=== PATIENT | female | born 1995 | race Two or more races ===

== ENCOUNTER 2025-01-31 06:00 | Emergency (ER) | payer MEDICAID, OTHER ==
[~2025-01-31] VITALS: Ht 152.4 cm; Wt 115.6 kg
--- NOTE | 2025-01-31 06:44 | ED.PDOC ---
General HPI Comments 29F presents to the ER w/ prior hx of an Ovarian Torsion which may be associated to the c/c of flank pain. Pt reports on being at her PCP 2 weeks ago and being diagnosed w/ a UTI, and was given antibiotics, for which has ran out and still has the frequent urination w/ a burning sensation. Pt states that she started to gradually have bilateral flank pain which are a 9/10 associated w/ a nosebleed, fever and chills, which all happened last night. Denies N/V/D, SOB, CP or no other associated symptom's, modifiers, recent injuries or sick contacts at this time. Chief Complaint: Flank Pain Time Seen by MD: 06:25 Reviewed notes: Nurses Notes, Medications, Allergies Allergies: Coded Allergies: Gabapentin (Verified Allergy, Severe, 01/31/25) Uncoded Allergies: CONTRAST (Allergy, Unknown, 01/31/25) SEAFORD LIQUID MULTIVITE (Allergy, Unknown, 01/31/25) Home Meds Active Scripts Nitrofurantoin Monohydrate Mac (Macrobid) 100 Mg Cap, 100 MG PO BID for 7 Days, #14 CAP Prov:KAL RODRIGUEZ MD 01/31/25 Information Source: Patient Mode of Arrival: Ambulatory Severity: Moderate Timing: Weeks Duration: Since onset Prehospital treatment: None Onset: Spontaneous Symptoms: Dysuria, Frequency History of: None Location: (R) Flank, (L)Flank associated signs and symptoms: Fever, Flank Pain, Dysuria, Frequency Past Medical History PAST MEDICAL HISTORY: Denies Surgical History: Denies all surgeries Surgical History (Other): Ovarian torsion BIOLOGIST History: No Pertinent BIOLOGIST History Family History Family History: Reviewed,noncontributory to illness, Unknown Social History Smoker: Non-Smoker Alcohol: Denies ETOH Use Drugs: Denies Drug Use Lives In: Home Constitutional: reports: chills, fever; denies: diaphoresis, fatigue, malaise, sweats, weakness, others EENTM: denies: blurred vision, double vision, ear bleeding, ear discharge, ear drainage, ear pain, ear ringing, eye pain, eye redness, hearing loss, mouth pain, mouth swelling, nasal discharge, nose bleeding, nose congestion, nose pain, photophobia, tearing, throat pain, throat swelling, voice changes, others Respiratory: denies: cough, hemoptysis, orthopnea, SOB at rest, shortness of breath, SOB with excertion, stridor, wheezing, others Cardiovascular: denies: chest pain, dizzy spells, diaphoresis, Dyspnea on exertion, edema, irregular heart beat, left arm pain, lightheadedness, palpitations, PND, syncope, others Gastrointestinal: denies: abdomen distended, abdominal pain, blood streaked bowels, constipated, diarrhea, dysphagia, difficulty swallowing, hematemesis, melena, nausea, poor appetite, poor fluid intake, rectal bleeding, rectal pain, vomiting, others Genitourinary: reports: burning, dysuria, flank pain, frequency; denies: abnormal vagina bleeding, dyspareunia, hematuria, incontinence, pain, , vagina discharge, urgency, others Neurological: denies: dizziness, fainting, headache, left sided numbness, left sided weakness, numbness, paresthesia, pre-existing deficit, right sided numbness, right sided weakness, seizure, speech problems, tingling, tremors, weakness, others Musculoskeletal: denies: back pain, gout, joint pain, joint swelling, muscle pain, muscle stiffness, neck pain, others Integumetry: denies: bruises, change in color, change in hair/nails, dryness, laceration, lesions, lumps, rash, wounds, others Allergic/Immunocompromised: denies: Difficulty Healing, Frequent Infections, Hives, Itching, others Hematologic/Lymphatic: denies: anemia, blood clots, easy bleeding, easy bruising, swollen glands, others Endocrine: denies: excessive hunger, excessive sweating, excessive thirst, excessive urination, flushing, intolerance to cold, intolerance to heat, une xplained weight gain, unexplained weight loss, others Psychiatric: denies: anxiety, bipolar disorder, depression, hopeless, panic disorder, schizophrenia, sleepless, suicidal, others All Other Systems: Reviewed and Negative Physical Exam General Appearance: Moderate Distress, Normal HEENT: Normal ENT Inspection, Pharynx Normal, TMs Normal Neck: Full Range of Motion, Non-Tender, Normal, Normal Inspection Respiratory: Chest Non-Tender, Lungs Clear, No Accessory Muscle Use, No Respiratory Distress, Normal Breath Sounds Cardiovascular: No Edema, No JVD, No Murmur, No Gallop, Normal Peripheral Pulses, Regular Rate/Rhythm Breast Exam: Deferred Gastrointestinal: No Organomegaly, Non Tender, No Pulsatile Mass, Normal Bowel Sounds, Soft Genitalia: Deferred Pelvic: Deferred Rectal: Deferred Extremities: No calf tenderness, Normal capillary refill, Normal inspection, Normal range of motion, Non-tender, No pedal edema Musculoskeletal : Apperance: Normal 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 Was a procedure done?: No Differential Diagnosis Kidney stone (Female): Musculoskeletal pain, Urinary obstruction, Urolithiasis X-Ray, Labs, Meds, VS Vital Signs Date Time Temp Pulse Resp B/P (MAP) Pulse Ox O2 Delivery O2 Flow Rate FiO2 01/31/25 07:18 74 18 99 Room Air* 0 21 01/31/25 07:17 98.1 74 18 116/55 (75) 99 98.1 01/31/25 06:10 97.9 87 14 149/62 (91) 99 97.9 Lab Test 01/31/25 07:02 01/31/25 06:12 Range/Units White Blood Count 6.9 4.4-10.8 10^3/uL Red Blood Count 4.63 4.0-5.20 10^6/uL Hemoglobin 11.6 L 12.2-16.2 g/dL Hematocrit 35.4 L 36.0-46.0 % Mean Corpuscular Volume 76.6 L 80.0-100.0 fL Mean Corpuscular Hemoglobin 25.1 L 28.0-32.0 pg Mean Corpuscular Hemoglobin Concent 32.8 32.0-36.0 g/dL Red Cell Distribution Width 17.5 H 11.8-14.3 % Platelet Count 381 140-450 10^3/uL Mean Platelet Volume 7.4 6.9-10.8 fL Neutrophils (%) (Auto) 50.3 37.0-80.0 % Lymphocytes (%) (Auto) 39.0 10.0-50.0 % Monocytes (%) (Auto) 7.1 0.0-12.0 % Eosinophils (%) (Auto) 2.9 0.0-7.0 % Basophils (%) (Auto) 0.7 0.0-2.0 % Neutrophils # (Auto) 3.5 1.6-8.6 10 ^3/uL Lymphocytes # (Auto) 2.7 0.4-5.4 10 ^3/uL Monocytes # (Auto) 0.5 0-1.3 10 ^3/uL Eosinophils # (Auto) 0.2 0-0.8 10 ^3/uL Basophils # (Auto) 0 0-0.2 10 ^3/uL Nucleated Red Blood Cells 0.1 % Sodium Level 137 136-145 mmol/L Potassium Level 4.2 3.5-5.1 mmol/L Chloride Level 105 98-107 mmol/L Carbon Dioxide Level 24 20-31 mmol/L Anion Gap 8 5-15 Blood Urea Nitrogen 9 9-23 mg/dL Creatinine 0.66 0.550-1.02 mg/dL Glomerular Filtration Rate Calc 121 >90 mL/min BUN/Creatinine Ratio 13.6 10.0-20.0 Serum Glucose 102 74-106 mg/dL Calcium Level 9.8 8.7-10.4 mg/dL Urine Color Colorless Yellow Urine Clarity Turbid H Clear Urine pH 6.0 5.0-9.0 Urine Specific [place] 1.024 1.001-1.035 Urine Protein Negative Negative Urine Ketones Negative Negative Urine Blood Negative Negative /uL Urine Nitrite Negative Negative Urine Bilirubin Negative Negative Urine Urobilinogen Normal Negative mg/dL Urine Leukocyte Esterase 3+ Negative /uL Urine RBC 1 0 - 4 /hpf Urine Microscopic WBC 44 H 0-5 /HPF Urine Squamous Epithelial Cells Few <5 /hpf Urine Bacteria Few H None Seen /hpf Urine Glucose Normal Normal mg/dL Current Medications Medications (Trade) Dose Ordered Sig/Rachael Route Start Time Stop Time Status Last Admin Ceftriaxone Sodium (Rocephin) 1,000 mg ONCE ONCE IM 01/31/25 07:30 01/31/25 07:31 DC 01/31/25 07:48 Patient alert. Complaining of suprapubic discomfort. Abdomen is soft nontender. Vitals stable. Urinalysis shows UTI. Was given Rocephin. Was given prescription of Macrobid antibiotic. No sign of distress. No sepsis. Explained to the patient. Was told to follow up with her primary care physician. Was told to come back if there is any problem. Time of Reevaluation: 06:55 Reevaluation 1ST: Unchanged Patient Education/Counseling: Diagnosis, Treatment, Prognosis Family Education/Counseling: No Family Present Departure 1 Departure Time of Disposition: 07:15 Impression: Primary Impression: Urinary tract infection Qualified Codes: N30.00 - Acute cystitis without hematuria Disposition: 01 HOME / SELF CARE / HOMELESS Condition: Good e-Prescriptions Nitrofurantoin Monohydrate Mac (Macrobid) 100 Mg Cap 100 MG PO BID for 7 Days, #14 CAP Prov: KAL RODRIGUEZ MD 01/31/25 Discharged With: Self Critical Care Note Critical Care Time?: No Stability Stability form required: No I personally scribed for KAL RODRIGUEZ MD ([email or web address]) on 01/31/25 at 06:44. Electronically submitted by Kalpesh Hogan ([email or web address]). KAL RODRIGUEZ MD Jan 31, 2025 06:44
[2025-01-31 07:06] LABS: Urine Bacteria FEW /hpf (None Seen); Urine Blood Negative /uL (Negative); Urine Clarity Turbid (Clear); Urine Color Colorless (Yellow); Urine Protein, UAD Negative (Negative); Urine Specific Gravity 1.024 (1.001-1.035); Urine Squamous Epithelial Cell FEW /hpf (<5); Urine Urobilinogen Normal (Negative); Urine WBC 44 /HPF (0-5)
[2025-01-31] MEDS ORDERED: NITR-87 PO (07:17)
[2025-01-31 07:18] VITALS: PULSE 74; RESP 18; O2SAT 99
[2025-01-31 07:28] LABS: Anion Gap 8 (5-15); Carbon Dioxide 24 mmol/L (20-31); Chloride 105 mmol/L (98-107); Potassium 4.2 mmol/L (3.5-5.1); Sodium 137 mmol/L (136-145)
[2025-01-31 07:29] LABS: Calcium 9.8 mg/dL (8.7-10.4); Eosinophils # (auto) 0.2 10 ^3/uL (0-0.8); Lymphocytes # (auto) 2.7 10 ^3/uL (0.4-5.4); Monocytes # (auto) 0.5 10 ^3/uL (0-1.3); Neutrophils # (auto) 3.5 10 ^3/uL (1.6-8.6); Nucleated Red Blood Cells % 0.1 %; Red Blood Cells 4.63 10^6/uL (4.0-5.20)
[2025-01-31 07:30] LABS: Basophils # (auto) 0 10 ^3/uL (0-0.2); Basophils % (auto) 0.7 % (0.0-2.0); Eosinophils % (auto) 2.9 % (0.0-7.0); Hematocrit 35.4 % (36.0-46.0); Hemoglobin 11.6 g/dL (12.2-16.2); Mean Corpuscular Hemoglobin 25.1 pg (28.0-32.0); Mean Corpuscular Hgb Conc. 32.8 g/dL (32.0-36.0); Mean Corpuscular Volume 76.6 fL (80.0-100.0); Monocytes % (auto) 7.1 % (0.0-12.0); Neutrophils % (auto) 50.3 % (37.0-80.0); Platelet Count (auto) 381 10^3/uL (140-450); Red Cell Distribution Width 17.5 % (11.8-14.3); White Blood Cell 6.9 10^3/uL (4.4-10.8)
[2025-01-31 07:34] LABS: BUN/Creatinine Ratio 13.6 (10.0-20.0); Blood Urea Nitrogen 9 mg/dL (9-23); Glucose 102 mg/dL (74-106)
[2025-01-31] MEDS: cefTRIAXone SOD 1,000 MG VL IM ONE (07:48)
[2025-01-31] MEDS: diphenhdrAMINE HCL 50 MG/1 ML VL IM ONE (08:04)
[2025-01-31 08:11] VITALS: BP 140/106; PULSE 74; RESP 18; TEMP 98.1; O2SAT 98
== END 2025-01-31 09:07 | disposition home or self-care (01) ==
LOC: ER 06:00
DX: N39.0 Urinary tract infection, site not specified (principal); Z87.440 Personal history of urinary (tract) infections; Z88.8 Allergy status to other drugs, medicaments and biological substances; Z79.899 Other long term (current) drug therapy
CPT/HCPCS: 36415; 80048; 81001; 85025; 96372; 99284; J0696; J1200

== ENCOUNTER 2025-03-22 08:14 | Emergency (ER) | payer MEDICAID ==
[~2025-03-22] VITALS: Ht 152.4 cm; Wt 115.5 kg
[~2025-03-22 08:14] MED LIST: NITR-87 PO
[2025-03-22 09:05] LABS: Urine Bacteria FEW /hpf (None Seen); Urine Blood Negative /uL (Negative); Urine Clarity Ex.Turbid (Clear); Urine Color Light-Orange (Yellow); Urine Mucus FEW (None Seen); Urine Protein, UAD TRACE (Negative); Urine Specific Gravity 1.027 (1.001-1.035); Urine Squamous Epithelial Cell MOD /hpf (<5); Urine Urobilinogen Normal (Negative); Urine WBC 25 /HPF (0-5); Urine pH 5.5 (5.0-9.0)
[2025-03-22 09:17] VITALS: BP 128/79; PULSE 96; RESP 16; TEMP 97.9; O2SAT 97
[2025-03-22] MEDS ORDERED: LEVO750T40 PO (09:27)
[2025-03-22] MEDS ORDERED: IBUP-1456 PO (09:27)
--- NOTE | 2025-03-22 09:33 | ED.PDOC ---
General HPI Comments A 29 YEAR OLD FEMALE PRESENTS TO THE ED WITH COMPLAINT OF RIGHT, LOWER BACK PAIN FOR 1 MONTH. DESCRIBES PAIN PRESSURE LIKE. SEEN 1 MONTH AGO FOR SAME C/O AND WAS PLACED ON MACROBID AFTER HAVING AN ALLERGIC REACTION TO ROCEPHIN. ENDORSES ON NO RELIEF OR IMPROVEMENT OF SYMPTOMS SINCE THEN. PATIENT DENIES FEVER, CHILLS, SHORTNESS OF BREATH, CHEST PAIN, ABDOMINAL PAIN, NAUSEA, VOMITING, HEADACHE, OR OTHER COMPLAINTS. NO OTHER SYMPTOMS OR MODIFYING FACTORS AT THIS TIME. PATIENT IS ALERT, ORIENTED X 4, AND HAS STEADY GAIT. Chief Complaint: Urinary Time Seen by MD: 09:20 Reviewed notes: Nurses Notes, Medications, Allergies Allergies: Coded Allergies: Gabapentin (Verified Allergy, Severe, 01/31/25) Ceftriaxone (Verified Allergy, Unknown, rash, 01/31/25) Uncoded Allergies: CONTRAST (Allergy, Unknown, 01/31/25) SEAFORD LIQUID MULTIVITE (Allergy, Unknown, 01/31/25) Home Meds Active Scripts Ibuprofen (Ibuprofen) 800 Mg Tab, 1 TAB PO TID, #30 TAB Prov:EDGAR MESSER 03/22/25 Levofloxacin Hemihydrate (LEVOFLOXACIN) 750 Mg Tab, 1 TAB PO DAILY, #7 TAB Prov:EDGAR MESSER 03/22/25 Nitrofurantoin Monohydrate Mac (Macrobid) 100 Mg Cap, 100 MG PO BID for 7 Days, #14 CAP Prov:KAL RODRIGUEZ MD 01/31/25 Information Source: Patient Mode of Arrival: Ambulatory Severity: Mild, Moderate Inability to void: None Timing: Days Duration: Since onset, Intermittent, Days Prehospital treatment: None Onset: Spontaneous Symptoms: Dysuria, Frequency, Urgency History of: UTI Location: Suprapubic Modifying factors: None associated signs and symptoms: Dysuria, Frequency, Urgency Past Medical History PAST MEDICAL HISTORY: UTI'S Surgical History: Denies all surgeries SKEIN YARD DRIER History: No Pertinent SKEIN [employer]RIER History Family History Family History: Reviewed,noncontributory to illness, Unknown Social History Smoker: Non-Smoker Alcohol: Denies ETOH Use Drugs: Denies Drug Use Lives In: Home Constitutional: denies: chills, diaphoresis, fatigue, fever, malaise, sweats, weakness, others EENTM: denies: blurred vision, double vision, ear bleeding, ear discharge, ear drainage, ear pain, ear ringing, eye pain, eye redness, hearing loss, mouth pain, mouth swelling, nasal discharge, nose bleeding, nose congestion, nose pain, photophobia, tearing, throat pain, throat swelling, voice changes, others Respiratory: denies: cough, hemoptysis, orthopnea, SOB at rest, shortness of breath, SOB with excertion, stridor, wheezing, others Cardiovascular: denies: chest pain, dizzy spells, diaphoresis, Dyspnea on exertion, edema, irregular heart beat, left arm pain, lightheadedness, palpitations, PND, syncope, others Gastrointestinal: denies: abdomen distended, abdominal pain, blood streaked bowels, constipated, diarrhea, dysphagia, difficulty swallowing, hematemesis, melena, nausea, poor appetite, poor fluid intake, rectal bleeding, rectal pain, vomiting, others Genitourinary: reports: burning, dysuria, frequency, urgency; denies: abnormal vagina bleeding, dyspareunia, flank pain, hematuria, incontinence, pain, , vagina discharge, others Neurological: denies: dizziness, fainting, headache, left sided numbness, left sided weakness, numbness, paresthesia, pre-existing deficit, right sided numbness, right sided weakness, seizure, speech problems, tingling, tremors, weakness, others Musculoskeletal: denies: back pain, gout, joint pain, joint swelling, muscle pain, muscle stiffness, neck pain, others Integumetry: denies: bruises, change in color, change in hair/nails, dryness, laceration, lesions, lumps, rash, wounds, others Allergic/Immunocompromised: denies: Difficulty Healing, Frequent Infections, Hives, Itching, others Hematologic/Lymphatic: denies: anemia, blood clots, easy bleeding, easy bruising, swollen glands, others Endocrine: denies: excessive hunger, excessive sweating, excessive thirst, excessive urination, flushing, intolerance to cold, intolerance to heat, unexplained weight gain, unexplained weight loss, others Psychiatric: denies: anxiety, bipolar disorder, depression, hopeless, panic disorder, schizophrenia, sleepless, suicidal, others All Other Systems: Reviewed and Negative ( PER HPI) Physical Exam General Appearance: No Apparent Distress, Obese HEENT: Normal ENT Inspection, PERRL/EOMI, Pharynx Normal, TMs Normal Neck: Full Range of Motion, Non-Tender, Normal, Normal Inspection Respiratory: Chest Non-Tender, Lungs Clear, No Accessory Muscle Use, No Respiratory Distress, Normal Breath Sounds Cardiovascular: No Edema, No JVD, No Murmur, No Gallop, Normal Peripheral Pulses, Regular Rate/Rhythm Breast Exam: Deferred Gastrointestinal: No Organomegaly, No Pulsatile Mass, Normal Bowel Sounds, Soft, Suprapubic, Tenderness Genitalia: Deferred Pelvic: Normal External Exam, Tender Uterus Rectal: Deferred Extremities: No calf tenderness, Normal capillary refill, Normal inspection, Normal range of motion, Non-tender, No pedal edema Musculoskeletal : Apperance: Normal Neurologic: Alert, 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 Was a procedure done?: No Differential Diagnosis Kidney stone (Female): N/A Urinary Problem (Female): Urolithiasis, UTI, Vaginitis Other Differential Diagnosis UTI, MUSCULOSKELETAL PAIN, PID, OVARIAN CYSTS, OVARIAN TORSION, APPENDECTOMY, DDD, AMONG OTHERS X-Ray, Labs, Meds, VS Vital Signs Date Time Temp Pulse Resp B/P (MAP) Pulse Ox O2 Delivery O2 Flow Rate FiO2 03/22/25 09:17 97.9 89 16 128/79 (95) 98 97.9 03/22/25 09:17 96 16 97 Room Air 03/22/25 08:42 98.4 96 18 130/83 (99) 96 98.4 Lab Test 03/22/25 08:40 Range/Units Urine Color Light-orange Yellow Urine Clarity Ex.turbid Clear Urine pH 5.5 5.0-9.0 Urine Specific [place] 1.027 1.001-1.035 Urine Protein Trace H Negative Urine Ketones Negative Negative Urine Blood Negative Negative /uL Urine Nitrite Negative Negative Urine Bilirubin Negative Negative Urine Urobilinogen Normal Negative mg/dL Urine Leukocyte Esterase 2+ Negative /uL Urine RBC 45 0 - 4 /hpf Urine Microscopic WBC 25 H 0-5 /HPF Urine Squamous Epithelial Cells Mod <5 /hpf Urine Bacteria Few H None Seen /hpf Urine Mucus Few None Seen Urine Glucose Normal Normal mg/dL Urine Test Negative Negative X-Ray, Labs, Meds, VS Comment EXTERNAL MEDICAL RECORDS REVIEWED: [NONE] INDEPENDENT HISTORIANS: [NONE] SOCIAL DETERMINANTS OF HEALTH: [NONE] LABS ORDERED: TEST, UA REVIEWED AND INTERPRETED RESULTS: NONE IMAGING ORDERED: NONE TREATMENTS ORDERED: PROCEDURES PERFORMED: NONE CRITICAL CARE TIME: NONE I HAVE DISCUSSED THE PATIENT WITH THE ATTENDING PHYSICIAN DR. BREONNA GOYAL AND HE AGREES WITH THE PATIENT'S PLAN OF CARE AND DISPOSITION. BASED ON HISTORY OF PRESENT ILLNESS, AND PHYSICAL EXAM, PATIENT WILL BE DISCHARGED HOME. DISCUSSED PLAN FOR DISCHARGE HOME WITH RX LEVOFLOXACIN AND IBUPROFEN. MEDICATION WARNINGS GIVEN. SHARED DECISION MAKING: DISCUSSED WITH PATIENT THAT THEIR WORKUP WAS NORMAL. PATIENT INSTRUCTED TO FOLLOW UP WITH PRIMARY CARE PROVIDER IN 1-2 DAYS FOR RE- EVALUATION OF SYMPTOMS. PATIENT VERBALIZES UNDERSTANDING TO RETURN TO ED FOR NEW OR WORSENING SYMPTOMS OR IF FOLLOW UP WITH PCP CANNOT BE OBTAINED. PATIENT FEELS COMFORTABLE GOING HOME AT THIS TIME. [facility] Time of 1ST Reevaluation: 09:41 Reevaluation 1ST: Unchanged Patient Education/Counseling: Diagnosis, Treatment, Need For Follow Up Family Education/Counseling: Diagnosis, Treatment, No Family Present Medical Screening: No EMC Exist At This Time Departure 1 Departure Time of Disposition: 09:41 Impression: Primary Impression: Urinary tract infection Qualified Codes: N30.00 - Acute cystitis without hematuria Disposition: HOME / SELF CARE / HOMELESS Condition: Stable Additional Instructions: Discharge Note: Continue on your medications. Drink plenty of fluids. Follow up with your primary Dr. Take your prescriptions as ordered. If your condition becomes worse call and follow up with your primary DrModesto for instructions or return to the ER if needed. Thank you for visiting [facility]. e-Prescriptions Ibuprofen (Ibuprofen) 800 Mg Tab 1 TAB PO TID, #30 TAB Prov: EDGAR MESSER 03/22/25 Levofloxacin Hemihydrate (LEVOFLOXACIN) 750 Mg Tab 1 TAB PO DAILY, #7 TAB Prov: EDGAR MESSER 03/22/25 Discharged With: Self Critical Care Note Critical Care Time?: No Stability Stability form required: No Heart Score Heart Score: Heart Score Response (Comments) Value History N/A 0 EKG N/A 0 Age N/A 0 Risk Factors N/A 0 Troponin N/A 0 Total 0 I personally scribed for EDGAR MESSER ([email or web address]) on 03/22/25 at 09:33. Electronically submitted by Oscar Elias ([email or web address]). EDGAR MESSER March 22, 2025 09:33
== END 2025-03-22 09:29 | disposition home or self-care (01) ==
LOC: ER 08:14
DX: N39.0 Urinary tract infection, site not specified (principal); Z79.1 Long term (current) use of non-steroidal anti-inflammatories (NSAID); Z88.1 Allergy status to other antibiotic agents; Z88.8 Allergy status to other drugs, medicaments and biological substances
CPT/HCPCS: 81001; 81025

== ENCOUNTER → 2025-04-06 | Outpatient (CLI) | payer MEDICAID ==
[~2025-04-06] MED LIST changes: +IBUP-1456 PO; +LEVO750T40 PO
[2025-04-06 10:27] LABS: Basophils # (auto) 0 10 ^3/uL (0-0.2); Basophils % (auto) 0.5 % (0.0-2.0); Eosinophils # (auto) 0.2 10 ^3/uL (0-0.8); Monocytes # (auto) 0.5 10 ^3/uL (0-1.3); Neutrophils # (auto) 3.7 10 ^3/uL (1.6-8.6); Nucleated Red Blood Cells % 0.1 %
[2025-04-06 10:28] LABS: Eosinophils % (auto) 2.7 % (0.0-7.0); Hematocrit 37.4 % (36.0-46.0); Hemoglobin 12.2 g/dL (12.2-16.2); Lymphocytes # (auto) 2.6 10 ^3/uL (0.4-5.4); Lymphocytes % (auto) 36.9 % (10.0-50.0); Mean Corpuscular Hgb Conc. 32.7 g/dL (32.0-36.0); Mean Corpuscular Volume 79.3 fL (80.0-100.0); Monocytes % (auto) 6.5 % (0.0-12.0); Neutrophils % (auto) 53.4 % (37.0-80.0); Platelet Count (auto) 375 10^3/uL (140-450); Red Blood Cells 4.72 10^6/uL (4.0-5.20); Red Cell Distribution Width 17.5 % (11.8-14.3)
[2025-04-06 10:37] LABS: Urine Bacteria FEW /hpf (None Seen); Urine Blood 3+ /uL (Negative); Urine Clarity Turbid (Clear); Urine Color Light-Brown (Yellow); Urine Mucus FEW (None Seen); Urine Protein, UAD 1+ (Negative); Urine Specific Gravity 1.019 (1.001-1.035); Urine Squamous Epithelial Cell MOD /hpf (<5); Urine Urobilinogen Normal (Negative); Urine WBC 29 /HPF (0-5); Urine WBC Clumps PRESENT /hpf (None Seen); Urine pH 5.5 (5.0-9.0)
[2025-04-06 10:55] LABS: Alanine Aminotransferase 17 U/L (7-40); Alkaline Phosphatase 72 U/L (46-116); Anion Gap 9 (5-15); Aspartate Aminotransferase 15 U/L (13-40); Bilirubin, Total 0.4 mg/dL (0.2-1.0); Calcium 9.9 mg/dL (8.7-10.4); Carbon Dioxide 25 mmol/L (20-31); Chloride 102 mmol/L (98-107); Glucose 83 mg/dL (74-106); Potassium 3.9 mmol/L (3.5-5.1); Sodium 136 mmol/L (136-145); Total Protein 8.1 g/dL (5.7-8.2)
[2025-04-06 10:57] LABS: Albumin 4.9 g/dL (3.2-4.8); Blood Urea Nitrogen 8 mg/dL (9-23); Cholesterol 372 mg/dL (< 200); HDL Cholesterol 34 mg/dL (40-59); LDL Cholesterol 341 mg/dL (< 100); Triglycerides 262 mg/dL (< 150)
[2025-04-06 10:58] LABS: Prolactin 6.43 ng/mL (2.8-29.2)
[2025-04-06 11:01] LABS: Free T4 (Free Thyroxine) 0.96 ng/dL (0.89-1.76)
[2025-04-07 08:07] LABS: Complement C3 160 mg/dL (82-167); Rheumatoid Arthritis Factor <10.0 IU/mL (<14.0)
[2025-04-07 09:06] LABS: Varicella Zoster IgG Antibody Reactive (Non Reactive)
[2025-04-07 10:07] LABS: Anti-Nuclear Antibody Direct Negative (Negative); Anti-dsDNA Antibody <1 IU/mL (0-9); Antiscleroderma-70 Antibody <0.2 AI (0.0-0.9); RNP Antibody <0.2 AI (0.0-0.9); Sjogren's Anti-SS-A Antibody <0.2 AI (0.0-0.9); Sjogren's Anti-SS-B Antibody <0.2 AI (0.0-0.9); Smith Antibody <0.2 AI (0.0-0.9)
[2025-04-07 11:07] LABS: Thyroid Peroxidase (TPO) Ab 14 IU/mL (0-34)
[2025-04-09 17:07] LABS: Actin (Smooth Muscle) Antibody 5 Units (0-19); Mitochondrial (M2) Antibody <20.0 Units (0.0-20.0)
[2025-04-09 20:06] LABS: Protein C Antigen 116 % (60-150)
[2025-04-10 07:07] LABS: Antiparietal Cell Antibody 1.8 Units (0.0-20.0)
[2025-04-10 12:07] LABS: Anti-Striated Muscle Antibody Negative (Neg:<1:100)
== END | disposition home or self-care (01) ==
LOC: LAB 09:15
PROVIDERS: ATTEND Internal Medicine
DX: E78.5 Hyperlipidemia, unspecified (principal); E28.2 Polycystic ovarian syndrome; N97.9 Female infertility, unspecified; Z80.3 Family history of malignant neoplasm of breast
CPT/HCPCS: 36415; 80053; 80061; 81001; 81240; 81241; 82306; 82626; 83036; 84144; 84146; 84403; 84439; 84443; 85025; 85301; 85302; 85306; 85613; 85670; 85705; 85732; 86160; 86225; 86235; 86376; 86431; 86703; 86706; 86762; 86787; 86850; 86900; 86901; 87902

== ENCOUNTER 2025-04-28 12:30 | Emergency (ER) | payer MEDICAID ==
[~2025-04-28] VITALS: Ht 152.4 cm; Wt 117.0 kg
[2025-04-28] MEDS: DexAMETHasone SOD PHOS 10MG/1ML VIAL INJ IV ONE (14:34)
[2025-04-28 14:37] VITALS: PULSE 87; RESP 20; O2SAT 99
--- NOTE | 2025-04-28 14:40 | ED.PDOC ---
HPI Allergic reaction HPI Comments 29 y/o F, with PMHx of severe allergens presents to the ED for CC of allergic rxn. Patient states, she took her Zepbound at 0800 today (04/28/25) and had a syncopal episode, following administration. Upon arrival, patient complains of current throat pain with difficultly swallowing. Patient endorses, taking Benad ryl at home with no relief of symptoms. Patient denies rash, shortness of breath, blurred vision, or chest pain. No other symptoms or modifying factors present at this time. Chief Complaint: Allergic Reaction Time Seen by MD: 14:30 Primary Care Provider: SIVA Reviewed Notes: Nurses Notes, Medications, Allergies Allergies: Coded Allergies: Gabapentin (Verified Allergy, Severe, 01/31/25) Ceftriaxone (Verified Allergy, Unknown, rash, 01/31/25) Uncoded Allergies: CONTRAST (Allergy, Unknown, 01/31/25) SEAFORD LIQUID MULTIVITE (Allergy, Unknown, 01/31/25) Home Meds Active Scripts Ibuprofen (Ibuprofen) 800 Mg Tab, 1 TAB PO TID, #30 TAB Prov:EDGAR MESSER 03/22/25 Levofloxacin Hemihydrate (LEVOFLOXACIN) 750 Mg Tab, 1 TAB PO DAILY, #7 TAB Prov:EDGAR MESSER 03/22/25 Nitrofurantoin Monohydrate Mac (Macrobid) 100 Mg Cap, 100 MG PO BID for 7 Days, #14 CAP Prov:KAL RODRIGUEZ MD 01/31/25 Information Source: Patient Mode of Arrival: Ambulatory Severity: Mild Rash: None SOB: None Difficulty swallowing: Mild Pruritus: None Timing: Minutes Duration: Since onset Prehospital treatment: None Exposed to: Other (rx) Developed: Difficult Swallowing, Throat Swelliing History of: Prior Similar Episodes Modyifying Factors: None Associated Sign and Symptoms: Faintness Past Medical History PAST MEDICAL HISTORY: UTI'S Surgical History: Denies all surgeries 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 AND SERVICE MEAT 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 History: No Pertinent SEAFOOD AND SERVICE MEAT MANAGER History Family History Family History: Reviewed,noncontributory to illness, Unknown Social History Smoker: Non-Smoker Alcohol: Denies ETOH Use Drugs: Denies Drug Use Lives In: Home Constitutional: denies: chills, diaphoresis, fatigue, fever, malaise, sweats, weakness, others EENTM: denies: blurred vision, double vision, ear bleeding, ear discharge, ear drainage, ear pain, ear ringing, eye pain, eye redness, hearing loss, mouth pain, mouth swelling, nasal discharge, nose bleeding, nose congestion, nose pain, photophobia, tearing, throat pain, throat swelling, voice changes, others Respiratory: denies: cough, hemoptysis, orthopnea, SOB at rest, shortness of breath, SOB with excertion, stridor, wheezing, others Cardiovascular: denies: chest pain, dizzy spells, diaphoresis, Dyspnea on exertion, edema, irregular heart beat, left arm pain, lightheadedness, palpitations, PND, syncope, others Gastrointestinal: denies: abdomen distended, abdominal pain, blood streaked bowels, constipated, diarrhea, dysphagia, difficulty swallowing, hematemesis, melena, nausea, poor appetite, poor fluid intake, rectal bleeding, rectal pain, vomiting, others Genitourinary: denies: abnormal vagina bleeding, burning, dyspareunia, dysuria, flank pain, frequency, hematuria, incontinence, pain, , vagina dis charge, urgency, others Neurological: reports: fainting; denies: dizziness, headache, left sided numbness, left sided weakness, numbness, paresthesia, pre-existing deficit, right sided numbness, right sided weakness, seizure, speech problems, tingling, tremors, weakness, others Musculoskeletal: denies: back pain, gout, joint pain, joint swelling, muscle pain, muscle stiffness, neck pain, others Integumetry: denies: bruises, change in color, change in hair/nails, dryness, laceration, lesions, lumps, rash, wounds, others Allergic/Immunocompromised: denies: Difficulty Healing, Frequent Infections, Hives, Itching, others Hematologic/Lymphatic: denies: anemia, blood clots, easy bleeding, easy bruising, swollen glands, others Endocrine: denies: excessive hunger, excessive sweating, excessive thirst, excessive urination, flushing, intolerance to cold, intolerance to heat, unexplained weight gain, unexplained weight loss, others Psychiatric: denies: anxiety, bipolar disorder, depression, hopeless, panic disorder, schizophrenia, sleepless, suicidal, others All Other Systems: Reviewed and Negative Physical Exam General Appearance: Mild Distress, Obese HEENT: Normal ENT Inspection, PERRL/EOMI Neck: Full Range of Motion, Non-Tender, Normal, Normal Inspection Respiratory: Chest Non-Tender, Lungs Clear, No Accessory Muscle Use, No Respiratory Distress, Normal Breath Sounds Cardiovascular: No Edema, No JVD, No Murmur, No Gallop, Normal Peripheral Pulses, Regular Rate/Rhythm Breast Exam: Deferred Gastrointestinal: No Organomegaly, Non Tender, No Pulsatile Mass, Normal Bowel Sounds, Soft Genitalia: Deferred Pelvic: Deferred Rectal: Black stool Extremities: No calf tenderness, Normal capillary refill, Normal inspection, Normal range of motion, Non-tender, No pedal edema Neurologic: Alert, yard brakeman II-XII nml as Tested, No Motor Deficits, Normal Affect, Normal Mood, No Sensory Deficits Cerebellar Function: Normal Reflexes: Normal Skin: Dry, Normal Color, Warm, Other (Both hand edematous but the rest of the body does not not show any signs of allergies) Lymphatic: No Adenopathy Was a procedure done? Was a procedure done?: No Differential diagnosis (all) Differential Diagnosis: Drug Reaction, Shock X-Ray, Labs, Meds, VS Vital Signs Date Time Temp Pulse Resp B/P (MAP) Pulse Ox O2 Delivery O2 Flow Rate FiO2 04/28/25 14:37 87 20 99 Room Air* 0 21 04/28/25 14:37 98.9 87 20 122/65 (84) 99 98.9 04/28/25 13:17 16 100 Room Air* 0 21 04/28/25 13:17 98.6 101 16 107/64 (78) 100 98.6 Current Medications Medications (Trade) Dose Ordered Sig/Rachael Route Start Time Stop Time Status Last Admin Dexamethasone Sodium Phosphate (Decadron Injection) 6 mg ONCE ONCE IV 04/28/25 13:45 04/28/25 13:46 DC 04/28/25 14:34 X-Ray, Labs, Meds, VS Comment Emergency patient took her medication and started having some reaction around her neck with a difficulty swallowing and some breathing issues nothing acute Patient received Decadron 6 mg IM and observed Patient is feeling better and will be discharged home to follow up with her PCP Time of 1ST Reevaluation: 15:00 Reevaluation 1ST: Unchanged Time of 2ND Reevaluation: 16:05 Reevaluation 2ND: Improved Consultation: PCP Patient Education/Counseling: Diagnosis, Treatment, Prognosis, Need For Follow Up Family Education/Counseling: Diagnosis, Treatment, Prognosis, Need For Follow Up, No Family Present Departure 1 Departure Time of Disposition: 16:06 Impression: Primary Impression: Drug-induced hypersensitivity reaction Qualified Codes: T78.40XA - Allergy, unspecified, initial encounter Disposition: HOME / SELF CARE / HOMELESS Condition: Fair Additional Instructions: Push fluids and follow up with your PCP Continue the Benadryl and follow up as directed e-Prescriptions Prednisone (Prednisone) 20 Mg Tab 20 MG PO BID for 5 Days, #10 MG Prov: LUCIO ALDANA MD 04/28/25 Discharged With: Self Critical Care Note Critical Care Time?: No Stability Stability form required: No Heart Score Heart Score: Heart Score Response (Comments) Value History N/A 0 EKG N/A 0 Age <45 0 Risk Factors No known risk factors 0 Troponin N/A 0 Total 0 I personally scribed for LUCIO ALDANA MD ([email or web address]) on 04/28/25 at 14:40. Electronically submitted by Shital Warner ([email or web address]). LUCIO ALDANA MD Apr 28, 2025 14:40
[2025-04-28] MEDS ORDERED: PRED20TA2 PO (16:08)
[2025-04-28 16:22] VITALS: BP 155/93; PULSE 86; RESP 16; TEMP 98.4; O2SAT 98
== END 2025-04-28 16:26 | disposition home or self-care (01) ==
LOC: ER 12:30
DX: R55 Syncope and collapse (principal); T50.995A Adverse effect of other drugs, medicaments and biological substances, initial encounter; R13.10 Dysphagia, unspecified; Z87.440 Personal history of urinary (tract) infections; Z88.1 Allergy status to other antibiotic agents; Z88.8 Allergy status to other drugs, medicaments and biological substances; Z79.1 Long term (current) use of non-steroidal anti-inflammatories (NSAID); Z79.899 Other long term (current) drug therapy; Y92.89 Other specified places as the place of occurrence of the external cause
CPT/HCPCS: 96374; 99283; J1100

== ENCOUNTER 2025-05-11 09:29 | Emergency (ER) | payer MEDICAID ==
[~2025-05-11] VITALS: Ht 152.4 cm; Wt 111.6 kg
[~2025-05-11 09:29] MED LIST changes: +PRED20TA2 PO
[2025-05-11 09:58] LABS: Urine Bacteria None Seen /hpf (None Seen)
[2025-05-11 10:15] LABS: Basophils # (auto) 0.1 10 ^3/uL (0-0.2); Hemoglobin 10.9 g/dL (12.2-16.2); Lymphocytes # (auto) 2.2 10 ^3/uL (0.4-5.4); Monocytes # (auto) 0.5 10 ^3/uL (0-1.3)
[2025-05-11 10:16] LABS: Basophils % (auto) 0.8 % (0.0-2.0); Eosinophils # (auto) 0.2 10 ^3/uL (0-0.8); Hematocrit 33.3 % (36.0-46.0); Lymphocytes % (auto) 30.1 % (10.0-50.0); Mean Corpuscular Hgb Conc. 32.8 g/dL (32.0-36.0); Mean Corpuscular Volume 79.2 fL (80.0-100.0); Monocytes % (auto) 7.2 % (0.0-12.0); Neutrophils # (auto) 4.5 10 ^3/uL (1.6-8.6); Neutrophils % (auto) 59.9 % (37.0-80.0); Platelet Count (auto) 447 10^3/uL (140-450); Red Cell Distribution Width 15.7 % (11.8-14.3); White Blood Cell 7.5 10^3/uL (4.4-10.8)
[2025-05-11 10:19] LABS: Sodium 140 mmol/L (136-145)
[2025-05-11 10:20] LABS: Anion Gap 10 (5-15); Carbon Dioxide 23 mmol/L (20-31)
[2025-05-11 10:21] LABS: Calcium 9.7 mg/dL (8.7-10.4); Chloride 107 mmol/L (98-107); Potassium 3.5 mmol/L (3.5-5.1)
[2025-05-11 10:25] LABS: BUN/Creatinine Ratio 15.6 (10.0-20.0); Blood Urea Nitrogen 10 mg/dL (9-23); Glucose 85 mg/dL (74-106)
[2025-05-11 10:56] LABS: Urine Blood 3+ /uL (Negative); Urine Clarity Ex.Turbid (Clear); Urine Color Dark-Brown (Yellow); Urine Mucus FEW (None Seen); Urine Protein, UAD 1+ (Negative); Urine Specific Gravity 1.037 (1.001-1.035); Urine Squamous Epithelial Cell None Seen /hpf (<5); Urine Urobilinogen Normal (Negative); Urine WBC 5 /HPF (0-5)
[2025-05-11] MEDS ORDERED: BACDST PO (11:50)
--- NOTE | 2025-05-11 11:50 | ED.PDOC ---
History of Present Illness HPI Comments [age] Year old female who had a D and C performed one week ago at an outside hospital events with a worsening hematuria and last two days. Patient called her OBGYN who recommended she come to the hospital. Patient reports they were supposed to give her antibiotics after her procedure by they forgot. Patient denies any fever chills nausea vomiting diarrhea . Chief Complaint: Pelvic Pain Time Seen by MD: 09:34 Primary Care Provider: [facility] Allergies: Coded Allergies: Gabapentin (Verified Allergy, Severe, 01/31/25) Ceftriaxone (Verified Allergy, Unknown, rash, 01/31/25) Uncoded Allergies: CONTRAST (Allergy, Unknown, 01/31/25) SEAFORD LIQUID MULTIVITE (Allergy, Unknown, 01/31/25) Home Meds Active Scripts Prednisone (Prednisone) 20 Mg Tab, 20 MG PO BID for 5 Days, #10 MG Prov:LUCIO ALDANA MD 04/28/25 Ibuprofen (Ibuprofen) 800 Mg Tab, 1 TAB PO TID, #30 TAB Prov:EDGAR MESSER 03/22/25 Levofloxacin Hemihydrate (LEVOFLOXACIN) 750 Mg Tab, 1 TAB PO DAILY, #7 TAB Prov:EDGAR MESSER 03/22/25 Nitrofurantoin Monohydrate Mac (Macrobid) 100 Mg Cap, 100 MG PO BID for 7 Days, #14 CAP Prov:KAL RODRIGUEZ MD 01/31/25 Mode of Arrival: Ambulatory Past Medical History PAST MEDICAL HISTORY: UTI'S Surgical History: Denies all surgeries LEVEL GLASS FORMING MACHINE OPERATOR History: No Pertinent LEVEL GLASS FORMING MACHINE OPERATOR History Family History Family History: Reviewed,noncontributory to illness, Unknown Social History Smoker: Non-Smoker Alcohol: Denies ETOH Use Drugs: Denies Drug Use Lives In: Home Physical Exam General Appearance: Normal HEENT: Pharynx Normal Neck: Normal Inspection Respiratory: No Respiratory Distress Cardiovascular: No Edema Breast Exam: Deferred Gastrointestinal: Non Tender Genitalia: Deferred Pelvic: Deferred Rectal: Deferred Extremities: Normal range of motion Neurologic: No Motor Deficits Cerebellar Function: NOT DONE Reflexes: NOT DONE Skin: Normal Color Lymphatic: NOT DONE Was a procedure done? Was a procedure done?: No Differential Dx Considerations may include: Acute cystitis, viral syndrome , post surgical process X-Ray, Labs, Meds, VS Vital Signs Date Time Temp Pulse Resp B/P (MAP) Pulse Ox O2 Delivery O2 Flow Rate FiO2 05/11/25 10:42 98.4 83 18 146/88 (107) 99 98.4 05/11/25 10:42 83 18 99 Room Air 05/11/25 09:37 97.7 90 17 121/45 (70) 99 97.7 Lab Test 05/11/25 09:54 05/11/25 09:25 Range/Units White Blood Count 7.5 4.4-10.8 10^3/uL Red Blood Count 4.20 4.0-5.20 10^6/uL Hemoglobin 10.9 L 12.2-16.2 g/dL Hematocrit 33.3 L 36.0-46.0 % Mean Corpuscular Volume 79.2 L 80.0-100.0 fL Mean Corpuscular Hemoglobin 26.0 L 28.0-32.0 pg Mean Corpuscular Hemoglobin Concent 32.8 32.0-36.0 g/dL Red Cell Distribution Width 15.7 H 11.8-14.3 % Platelet Count 447 140-450 10^3/uL Mean Platelet Volume 7.6 6.9-10.8 fL Neutrophils (%) (Auto) 59.9 37.0-80.0 % Lymphocytes (%) (Auto) 30.1 10.0-50.0 % Monocytes (%) (Auto) 7.2 0.0-12.0 % Eosinophils (%) (Auto) 2.0 0.0-7.0 % Basophils (%) (Auto) 0.8 0.0-2.0 % Neutrophils # (Auto) 4.5 1.6-8.6 10 ^3/uL Lymphocytes # (Auto) 2.2 0.4-5.4 10 ^3/uL Monocytes # (Auto) 0.5 0-1.3 10 ^3/uL Eosinophils # (Auto) 0.2 0-0.8 10 ^3/uL Basophils # (Auto) 0.1 0-0.2 10 ^3/uL Nucleated Red Blood Cells 0.0 % Sodium Level 140 136-145 mmol/L Potassium Level 3.5 3.5-5.1 mmol/L Chloride Level 107 98-107 mmol/L Carbon Dioxide Level 23 20-31 mmol/L Anion Gap 10 5-15 Blood Urea Nitrogen 10 9-23 mg/dL Creatinine 0.64 0.550-1.02 mg/dL Glomerular Filtration Rate Calc 122 >90 mL/min BUN/Creatinine Ratio 15.6 10.0-20.0 Serum Glucose 85 74-106 mg/dL Calcium Level 9.7 8.7-10.4 mg/dL Urine Color Dark-brown Yellow Urine Clarity Ex.turbid Clear Urine pH 6.0 5.0-9.0 Urine Specific [place] 1.037 H 1.001-1.035 Urine Protein 1+ H Negative Urine Ketones Trace Negative Urine Blood 3+ H Negative /uL Urine Nitrite Negative Negative Urine Bilirubin Negative Negative Urine Urobilinogen Normal Negative mg/dL Urine Leukocyte Esterase 1+ Negative /uL Urine RBC 1093 0 - 4 /hpf Urine Microscopic WBC 5 0-5 /HPF Urine Squamous Epithelial Cells None seen <5 /hpf Urine Bacteria None seen None Seen /hpf Urine Mucus Few None Seen Urine Glucose Normal Normal mg/dL Time of 1ST Reevaluation: 11:49 Reevaluation 1ST: Improved Patient Education/Counseling: Diagnosis, Treatment Family Education/Counseling: No Family Present SEPSIS Sepsis Screen Date sepsis recognized/suspect: May 11, 2025 Time Sepsis recognized/suspect: 936 Recent Procedure: No On Antibiotic Therapy: No Respiratory Rate >20: No Heart Rate >90: No Temp<36 C (96.8 F) or >38.3 C: No SBP <90 or MAP <65 mmHG: No New Acute Mental Status Change: No Is the patient on CPAP, BIPAP,: No Physician Orders Sulfamethoxazole W/Trimeth Tab (Bactrim (05/11/25 11:45) Vital Signs Date Time Temp Pulse Resp B/P (MAP) Pulse Ox O2 Delivery O2 Flow Rate FiO2 05/11/25 10:42 98.4 83 18 146/88 (107) 99 98.4 05/11/25 10:42 83 18 99 Room Air 05/11/25 09:37 97.7 90 17 121/45 (70) 99 97.7 Laboratory Tests Test 05/11/25 09:54 White Blood Count 7.5 10^3/uL (4.4-10.8) Departure 1 Departure Time of Disposition: 11:49 (Patient with a hematuria after discussion with the patient's Ob start patient on antibiotics and discharge patient home with OB follow up) Impression: Primary Impression: Hematuria Qualified Codes: R31.9 - Hematuria, unspecified Disposition: HOME / SELF CARE / HOMELESS Condition: Stable Additional Instructions: Your workup today has been having blood and some white blood cells in her urine. You were prescribed antibiotics. Please take as directed. It is important to follow up with your OBGYN within one week to ensure your healing well. If your symptoms worsen or you have any other concerns please return to the emergency room. e-Prescriptions Sulfamethoxazole W/Trimethopri (Bactrim Ds Tablet) 1 Tab Tb 1 TAB PO BID for 7 Days, #14 TAB Prov: BREONNA GOYAL MD 05/11/25 Discharged With: Self Critical Care Note Critical Care Time?: No Stability Stability form required: No BREONNA GOYAL MD May 11, 2025 11:50
[2025-05-11 12:47] VITALS: BP 122/48; PULSE 76; RESP 19; TEMP 98.5; O2SAT 100
[2025-05-11] MEDS: SULFAMETHOX W/TRIMETH(800/160MG) DS TAB PO ONE (12:56)
[2025-05-12] MEDS ORDERED: ERGO1CAP12 PO ×2 (10:45)
[2025-05-12] MEDS ORDERED: TIRZ5INJ2 ×2 (10:48)
== END 2025-05-11 12:59 | disposition home or self-care (01) ==
LOC: ER 09:29
DX: R31.9 Hematuria, unspecified (principal); Z87.440 Personal history of urinary (tract) infections; Z88.8 Allergy status to other drugs, medicaments and biological substances; Z88.1 Allergy status to other antibiotic agents; Z79.52 Long term (current) use of systemic steroids; Z79.1 Long term (current) use of non-steroidal anti-inflammatories (NSAID); Z79.899 Other long term (current) drug therapy
CPT/HCPCS: 36415; 80048; 81001; 85025

== ENCOUNTER 2025-05-12 02:48 | Inpatient (IN) | payer MEDICAID ==
[~2025-05-12] VITALS: Ht 152.4 cm; Wt 105.3 kg
[~2025-05-12 02:48] MED LIST changes: +BACDST PO
--- NOTE | 2025-05-12 03:27 | ED.PDOC ---
BUSINESS OBJECTS ARCHITECT HPI Comments 29-year-old female who came to ER for vaginal bleeding. Patient currently being managed by a fertility clinic. Underwent hysteroscopy/dilatation and curettage last May 03. For the past 6 days, she has been experiencing vaginal bleeding, profuse, consuming 10 pads per day accompanied with clots. 3 days ago she star amy experiencing right inguinal/ right lower quadrant pain as well. Denies any urinary symptoms such as dysuria or gross hematuria Chief Complaint: Vaginal bleeding Time Seen by MD: 03:26 Reviewed Notes: Nurses Notes Allergies: Coded Allergies: Gabapentin (Verified Allergy, Severe, 01/31/25) Ceftriaxone (Verified Allergy, Unknown, rash, 01/31/25) Uncoded Allergies: CONTRAST (Allergy, Unknown, 01/31/25) SEAFORD LIQUID MULTIVITE (Allergy, Unknown, 01/31/25) Home Meds Active Scripts Sulfamethoxazole W/Trimethopri (Bactrim Ds Tablet) 1 Tab Tb, 1 TAB PO BID for 7 Days, #14 TAB Prov:BREONNA GOYAL MD 05/11/25 Prednisone (Prednisone) 20 Mg Tab, 20 MG PO BID for 5 Days, #10 MG Prov:LUCIO ALDANA MD 04/28/25 Ibuprofen (Ibuprofen) 800 Mg Tab, 1 TAB PO TID, #30 TAB Prov:EDGAR MESSER 03/22/25 Levofloxacin Hemihydrate (LEVOFLOXACIN) 750 Mg Tab, 1 TAB PO DAILY, #7 TAB Prov:EDGAR MESSER 03/22/25 Nitrofurantoin Monohydrate Mac (Macrobid) 100 Mg Cap, 100 MG PO BID for 7 Days, #14 CAP Prov:KAL RODRIGUEZ MD 01/31/25 Information Source: Patient Mode of Arrival: Ambulatory Timing: Days Severity: Moderate Vaginal Discharge: None Vaginal Lesions: None Bleeding Quality: Bright Red, Dark, Clotted Onset Of Mass/Bleeding: Spontaneous, Following Trauma Control: None Associated Signs and Symptoms: Vaginal Bleeding, Abdominal Pain Past Medical History PAST MEDICAL HISTORY: UTI'S Past Medical History (Other): PCOS, history of right ovarian torsion Surgical History (Other): Exploratory laparoscopy [employer]WE[employer] HEMMER History: Ovarian Cysts, Other (Ovarian torsion, right) Family History Family History: Reviewed,noncontributory to illness Social History Smoker: Non-Smoker Alcohol: Denies ETOH Use Drugs: Denies Drug Use Lives In: Home Constitutional: denies: chills, diaphoresis, fatigue, fever, malaise, sweats, weakness, others EENTM: denies: blurred vision, double vision, ear bleeding, ear discharge, ear drainage, ear pain, ear ringing, eye pain, eye redness, hearing loss, mouth pain, mouth swelling, nasal discharge, nose bleeding, nose congestion, nose pain, photophobia, tearing, throat pain, throat swelling, voice changes, others Respiratory: denies: cough, hemoptysis, orthopnea, SOB at rest, shortness of breath, SOB with excertion, stridor, wheezing, others Cardiovascular: denies: chest pain, dizzy spells, diaphoresis, Dyspnea on exertion, edema, irregular heart beat, left arm pain, lightheadedness, palpitations, PND, syncope, others Gastrointestinal: reports: abdominal pain; denies: abdomen distended, blood streaked bowels, constipated, diarrhea, dysphagia, difficulty swallowing, hematemesis, melena, nausea, poor appetite, poor fluid intake, rectal bleeding, rectal pain, vomiting, others Genitourinary: reports: abnormal vagina bleeding; denies: burning, dyspareunia, dysuria, flank pain, frequency, hematuria, incontinence, pain, , vagina discharge, urgency, others Neurological: denies: dizziness, fainting, headache, left sided numbness, left sided weakness, numbness, paresthesia, pre-existing deficit, right sided numbness, right sided weakness, seizure, speech problems, tingling, tremors, weakness, others Musculoskeletal: denies: back pain, gout, joint pain, joint swelling, muscle pain, muscle stiffness, neck pain, others Integumetry: denies: bruises, change in color, change in hair/nails, dryness, laceration, lesions, lumps, rash, wounds, others Allergic/Immunocompromised: denies: Difficulty Healing, Frequent Infections, Hives, Itching, others Hematologic/Lymphatic: denies: anemia, blood clots, easy bleeding, easy bruising, swollen glands, others Endocrine: denies: excessive hunger, excessive sweating, excessive thirst, excessive urination, flushing, intolerance to cold, intolerance to heat, unexplained weight gain, unexplained weight loss, others Psychiatric: denies: anxiety, bipolar disorder, depression, hopeless, panic disorder, schizophrenia, sleepless, suicidal, others Physical Exam General Appearance: Mild Distress, Obese HEENT: Other (Pupils and face symmetric. Moist mucous membranes.) Neck: Full Range of Motion, Normal Inspection Respiratory: Lungs Clear, No Accessory Muscle Use, No Respiratory Distress, Normal Breath Sounds Cardiovascular: No Edema, No JVD, Regular Rate/Rhythm Breast Exam: Deferred Gastrointestinal: RLQ, Soft, Tenderness Genitalia: Deferred Pelvic: Deferred Rectal: Deferred Extremities: Normal inspection, Normal range of motion, Non-tender, No pedal edema Neurologic: Alert (Oriented x4), Other (Ambulatory) Cerebellar Function: NOT DONE Reflexes: NOT DONE Skin: Dry, Normal Color, Warm Lymphatic: NOT DONE Was a procedure done? Was a procedure done?: No Differential Diagnosis (UN[employer]WE[employer] HEMMER) Vaginal Bleeding: Blood Loss Anemia, Ectopic , Hormonal, Menstrual Bleeding, Myomatous Uterus, PID, Trauma, UTI, Other (Appendicitis, ovarian torsion, ruptured ovarian cyst, among others) X-Ray, Labs, Meds, VS Vital Signs Date Time Temp Pulse Resp B/P (MAP) Pulse Ox O2 Delivery O2 Flow Rate FiO2 05/12/25 05:51 94 16 156/89 05/12/25 05:45 99.1 94 14 156/89 (111) 98 99.1 05/12/25 05:45 Room Air* 0 21 05/12/25 04:05 97.9 87 18 119/57 (77) 99 97.9 Lab Test 05/12/25 04:38 05/12/25 03:48 Range/Units Urine Color Dark yellow Yellow Urine Clarity Turbid H Clear Urine pH 6.0 5.0-9.0 Urine Specific [place] 1.039 H 1.001-1.035 Urine Protein 1+ H Negative Urine Ketones Negative Negative Urine Blood 3+ H Negative /uL Urine Nitrite Negative Negative Urine Bilirubin Negative Negative Urine Urobilinogen Normal Negative mg/dL Urine Leukocyte Esterase 1+ Negative /uL Urine RBC 3742 0 - 4 /hpf Urine Microscopic WBC 18 H 0-5 /HPF Urine Squamous Epithelial Cells None seen <5 /hpf Urine Bacteria None seen None Seen /hpf Urine Mucus Few None Seen Urine Glucose Normal Normal mg/dL White Blood Count 10.1 # 4.4-10.8 10^3/uL Red Blood Count 3.88 L 4.0-5.20 10^6/uL Hemoglobin 10.2 L 12.2-16.2 g/dL Hematocrit 30.6 L 36.0-46.0 % Mean Corpuscular Volume 78.9 L 80.0-100.0 fL Mean Corpuscular Hemoglobin 26.3 L 28.0-32.0 pg Mean Corpuscular Hemoglobin Concent 33.4 32.0-36.0 g/dL Red Cell Distribution Width 15.4 H 11.8-14.3 % Platelet Count 369 140-450 10^3/uL Mean Platelet Volume 7.7 6.9-10.8 fL Neutrophils (%) (Auto) 66.9 37.0-80.0 % Lymphocytes (%) (Auto) 23.9 10.0-50.0 % Monocytes (%) (Auto) 6.7 0.0-12.0 % Eosinophils (%) (Auto) 1.9 0.0-7.0 % Basophils (%) (Auto) 0.6 0.0-2.0 % Neutrophils # (Auto) 6.8 1.6-8.6 10 ^3/uL Lymphocytes # (Auto) 2.4 0.4-5.4 10 ^3/uL Monocytes # (Auto) 0.7 0-1.3 10 ^3/uL Eosinophils # (Auto) 0.2 0-0.8 10 ^3/uL Basophils # (Auto) 0.1 0-0.2 10 ^3/uL Nucleated Red Blood Cells 0.0 % Prothrombin Time 11.8 9.3-11.8 sec Prothrombin Time INR 1.13 0.9-1.15 Activated Partial Thromboplast Time 29.0 24.5-34.5 SEC Sodium Level 138 136-145 mmol/L Potassium Level 3.6 3.5-5.1 mmol/L Chloride Level 106 98-107 mmol/L Carbon Dioxide Level 23 20-31 mmol/L Anion Gap 9 5-15 Blood Urea Nitrogen 10 9-23 mg/dL Creatinine 0.81 0.550-1.02 mg/dL Glomerular Filtration Rate Calc 100 >90 mL/min BUN/Creatinine Ratio 12.3 10.0-20.0 Serum Glucose 98 74-106 mg/dL Calcium Level 9.5 8.7-10.4 mg/dL Beta HCG, Quantitative 0.5 L 1.5-4.2 mIU/mL Current Medications Medications (Trade) Dose Ordered Sig/Rachael Route Start Time Stop Time Status Last Admin Sodium Chloride 1,000 ml @ 1,000 mls/hr Q1H ONCE IV 05/12/25 03:30 05/12/25 04:29 DC 05/12/25 05:51 Ondansetron HCl (Zofran) 4 mg ONCE ONCE IV 05/12/25 03:30 05/12/25 03:31 DC 05/12/25 05:50 Morphine Sulfate 4 mg ONCE ONCE IV 05/12/25 03:30 05/12/25 03:31 DC 05/12/25 05:51 Levofloxacin/ Dextrose 100 ml @ 100 mls/hr ONCE ONCE IV 05/12/25 05:45 05/12/25 06:44 05/12/25 05:50 PROCEDURE(s): ABPL - CT AB PEL WO CON-NO ORAL OR IV REASON: rlq pain ORDER NUMBER(s): [id number], ACCESSION NUMBER(s): [id number] Exam: CT CT AB PEL WO CON-NO ORAL OR IV History: rlq pain Comparison Study: None Technique: Multidetector spiral CT of the abdomen was performed from lung bases to pubic symphysis. Imaging was performed without IV contrast. Axial, coronal and sagittal multiplanar reformats were obtained from the axial data set by the technologist. Radiation Dose : 1. Abdomen/Pelvis: CTDIvol 25.1 cm mGy, DLP 1607.92 mGy*cm. Findings: Evaluation of solid organs is limited due to lack of intravenous contrast use. Lung Bases: No acute or significant lung base finding. Normal heart size. No pleural or pericardial effusion. Liver: The liver is normal in size. No focal lesions. Gallbladder and Biliary Tree: Unremarkable Spleen: Unremarkable Pancreas: The pancreas is grossly normal in appearance. Adrenal Glands: Unremarkable Kidneys: Kidneys are grossly normal without calculi or hydronephrosis. Bladder: Grossly unremarkable for degree of distention. Bowel: The stomach is grossly normal in appearance. Small bowel and colon are normal in caliber and distribution. The appendix is normal. Ascites: Absent Lymphadenopathy: Mildly enlarged conspicuous right lower quadrant mesenteric lymph nodes measure up to approximately 1.0 cm in short axis dimension. Abdominal Wall and Mesentery: Small fat containing umbilical hernia. Vasculature: The visualized abdominal aorta is normal in size and caliber. Evaluation of abdominal and pelvic vessels is limited due to lack of intravenous contrast. Pelvic Organs: Unremarkable Musculoskeletal: No aggressive focal bony lesions, acute fractures or dislocation. IMPRESSION: 1. Mildly enlarged conspicuous right lower quadrant mesenteric lymph nodes in the setting of a normal-appearing appendix. These findings are consistent with sequelae of mesenteric adenitis. Radiation optimization: All CT scans at this facility use at least one of these dose optimization techniques: automated exposure control mA and/or kV adjustment per patient size (includes targeted exams where dose is matched to clinical indication) or iterative reconstruction. X-Ray, Labs, Meds, VS Comment 29-year-old female currently undergoing fertility treatment status post hy steroscopy on 05/03/2025 complaining of right lower quadrant pain and vaginal bleeding. Patient also states she has a history of right-sided ovarian torsion. Vitals remarkable for BP 119/57 Exam remarkable for right lower quadrant tenderness to palpation Rhythm strip independently interpreted by me: Sinus rhythm, rate 87, no ectopy. CT abdomen and pelvis IMPRESSION: 1. Mildly enlarged conspicuous right lower quadrant mesenteric lymph nodes in the setting of a normal-appearing appendix. These findings are consistent with sequelae of mesenteric adenitis. Radiation optimization: All CT scans at this facility use at least one of these dose optimization techniques: automated exposure control mA and/or kV adjustment per patient size (includes targeted exams where dose is matched to clinical indication) or iterative reconstruction. Pelvic ultrasound results pending CBC remarkable for hemoglobin 10.2, hematocrit 30.6, basic metabolic panel unremarkable, coag panel unremarkable, serum quantitative hCG negative, UA abnormal consistent with UTI Patient treated with the following in the ED: 1 L 0.9 normal saline IV bolus, morphine 4 mg IV, Zofran 4 mg IV, Levaquin 500 mg IV On re-evaluation, patient states pain has improved. Vitals are stable. Pt has been on Bactrim without relief, so plan is to admit for IV antibiotics and pain control. Patient endorsed to the oncoming ED physician at 6:00 a.m. pending pelvic ultrasound results to r/o ovarian torsion, and admission. Time of 1ST Reevaluation: 03:20 Reevaluation 1ST: Unchanged Patient Education/Counseling: Diagnosis, Treatment Family Education/Counseling: No Family Present Departure 1 Departure Time of Disposition: 06:00 Impression: Primary Impression: Vaginal bleeding Additional Impressions: UTI (urinary tract infection) Qualified Codes: N39.0 - Urinary tract infection, site not specified; R31.9 - Hematuria, unspecified Mesenteric adenitis Disposition: ADMITTED INPATIENT Admit to: Med Surg Condition: Guarded Critical Care Note Critical Care Time?: No Stability Stability form required: No Heart Score Heart Score: Heart Score Response (Comments) Value History N/A 0 EKG N/A 0 Age N/A 0 Risk Factors N/A 0 Troponin N/A 0 Total 0 I personally scribed for JANNY UPTON MD ([email or web address]) on 05/12/25 at 03:27. Electronically submitted by Elvis Jameson ([facility]). JANNY UPTON MD May 12, 2025 03:27
--- NOTE | 2025-05-12 04:11 | DVH ---
Exam: CT CT AB PEL WO CON-NO ORAL OR IV History: rlq pain Comparison Study: None Technique: Multidetector spiral CT of the abdomen was performed from lung bases to pubic symphysis. I maging was performed without IV contrast. Axial, coronal and sagittal multiplanar reformats were obta ined from the axial data set by the technologist. Radiation Dose : 1. Abdomen/Pelvis: CTDIvol 25.1 cm mGy, DLP 1607.92 mGy*cm. Findings: Evaluation of solid organs is limited due to lack of intravenous contrast use. Lung Bases: No acute or significant lung base finding. Normal heart size. No pleural or pericardial effusion. Liver: The liver is normal in size. No focal lesions. Gallbladder and Biliary Tree: Unremarkable Spleen: Unremarkable Pancreas: The pancreas is grossly normal in appearance. Adrenal Glands: Unremarkable Kidneys: Kidneys are grossly normal without calculi or hydronephrosis. Bladder: Grossly unremarkable for degree of distention. Bowel: The stomach is grossly normal in appearance. Small bowel and colon are normal in caliber and d istribution. The appendix is normal. Ascites: Absent Lymphadenopathy: Mildly enlarged conspicuous right lower quadrant mesenteric lymph nodes measure up t o approximately 1.0 cm in short axis dimension. Abdominal Wall and Mesentery: Small fat containing umbilical hernia. Vasculature: The visualized abdominal aorta is normal in size and caliber. Evaluation of abdominal a nd pelvic vessels is limited due to lack of intravenous contrast. Pelvic Organs: Unremarkable Musculoskeletal: No aggressive focal bony lesions, acute fractures or dislocation. IMPRESSION: 1. Mildly enlarged conspicuous right lower quadrant mesenteric lymph nodes in the setting of a normal -appearing appendix. These findings are consistent with sequelae of mesenteric adenitis. Radiation optimization: All CT scans at this facility use at least one of these dose optimization diana hniques: automated exposure control mA and/or kV adjustment per patient size (includes targeted exam s where dose is matched to clinical indication) or iterative reconstruction.
[2025-05-12 04:38] LABS: Basophils # (auto) 0.1 10 ^3/uL (0-0.2); Basophils % (auto) 0.6 % (0.0-2.0); Eosinophils # (auto) 0.2 10 ^3/uL (0-0.8); Eosinophils % (auto) 1.9 % (0.0-7.0); Hematocrit 30.6 % (36.0-46.0); Hemoglobin 10.2 g/dL (12.2-16.2); Lymphocytes # (auto) 2.4 10 ^3/uL (0.4-5.4); Lymphocytes % (auto) 23.9 % (10.0-50.0); Mean Corpuscular Hemoglobin 26.3 pg (28.0-32.0); Mean Corpuscular Hgb Conc. 33.4 g/dL (32.0-36.0); Mean Corpuscular Volume 78.9 fL (80.0-100.0); Monocytes # (auto) 0.7 10 ^3/uL (0-1.3); Monocytes % (auto) 6.7 % (0.0-12.0); Neutrophils # (auto) 6.8 10 ^3/uL (1.6-8.6); Neutrophils % (auto) 66.9 % (37.0-80.0); Platelet Count (auto) 369 10^3/uL (140-450); Red Blood Cells 3.88 10^6/uL (4.0-5.20); Red Cell Distribution Width 15.4 % (11.8-14.3); White Blood Cell 10.1 10^3/uL (4.4-10.8)
[2025-05-12 04:44] LABS: Chloride 106 mmol/L (98-107); Potassium 3.6 mmol/L (3.5-5.1); Sodium 138 mmol/L (136-145)
[2025-05-12 04:45] LABS: Anion Gap 9 (5-15); Carbon Dioxide 23 mmol/L (20-31); INR 1.13 (0.9-1.15); Prothrombin Time 11.8 sec (9.3-11.8)
[2025-05-12 04:46] LABS: Calcium 9.5 mg/dL (8.7-10.4)
[2025-05-12 04:50] LABS: Glucose 98 mg/dL (74-106)
[2025-05-12 04:51] LABS: BUN/Creatinine Ratio 12.3 (10.0-20.0); Blood Urea Nitrogen 10 mg/dL (9-23)
[2025-05-12 04:57] LABS: Urine Bacteria None Seen /hpf (None Seen)
[2025-05-12 05:09] LABS: Urine Blood 3+ /uL (Negative); Urine Clarity Turbid (Clear); Urine Mucus FEW (None Seen); Urine Protein, UAD 1+ (Negative); Urine Specific Gravity 1.039 (1.001-1.035); Urine Squamous Epithelial Cell None Seen /hpf (<5); Urine Urobilinogen Normal (Negative); Urine WBC 18 /HPF (0-5)
[2025-05-12 05:10] LABS: Urine Color DARK YELLOW (Yellow)
[2025-05-12] MEDS: ONDANSETRON HCL 4 MG/2 ML VIAL IV ONE (05:50)
[2025-05-12] MEDS: levoFLOXacin 500MG 100 ML IV ONE (05:50)
[2025-05-12] MEDS: MORPHINE SULFATE 4 MG/ML SYR/VIAL IV ONE (05:51)
[2025-05-12] MEDS: SODIUM CHLORIDE 0.9% 1,000 ML IV ONE (05:51)
--- NOTE | 2025-05-12 07:29 | DVHHP2 ---
History of Present Illness Reason for Visit: Abdominal pain History of Present Illness 29-year-old female past medical history UTIs PCOS right ovarian torsion with the exploratory laparotomy chief complaint patient states that she went to the fertility clinic due to trying to get she states on May 03, 2025 she had a hysteroscopy procedure which they noticed a lot of scar tissue so they did a 360 cleaning in her vaginal area she states everything went smoothly was no actual bleeding she was placed on control pills and then on May 06 she has been having bleeding that has gotten worse patient states in the last day she has been having bleeding that is taking up 11 pads a day with some clots she has has been changed her pad pretty frequently patient does complain of right lower quadrant abdominal pain which is sharp and stabbing despite getting morphine she still having the pain she states she did called the fertility clinic yesterday and they stated that she can not follow up until Wednesday but they stated it for pain is worse go to the ER so she comes to the ER today for evaluation she is currently sexually active there was no odor discharge from her vaginal area and she is a 0 para 0 when evaluating patient's labs and imaging from ED Levaquin was given morphine Zofran normal saline hemoglobin was 10.2 and 30.[address] scan abdomen pelvis showed mesenteric adenitis. We will admit patient for IV hydration antibiotics and also we will ask production line technician for evaluation. Also we will do pelvic ultrasound was unremarkable. We will admit for further workup and care Past Medical History See HPI above Past Surgical History See HPI above Family History Reviewed, non-contributory to the management of this case. Past Social History The patient lives at home, denies smoking, alcohol or illicit drugs abuse. Review of Systems Constitutional: No: Fever, Chills, Sweats, Weakness, Malaise, Other Eyes: No: Pain, Vision change, Conjunctivae inflammation, Eyelid inflammation, Other, Redness ENT: No: Ear pain, Ear discharge, Nose pain, Nose discharge, Nose congestion, Mouth pain, Mouth swelling, Throat pain, Throat swelling, Other Respiratory: No: Cough, Dry, Shortness of breath, SOB with excertion, Wheezing, Hemoptysis, Pleuritic Pain, Sputum, Wheezing, Other Cardiovascular: No: Chest Pain, Palpitations, Orthopnea, Paroxysmal Noc. Dyspnea, Edema, Lt Headedness, Other Gastrointestinal: Nausea, Vomiting, Abdominal Pain; No: Diarrhea, Constipation, Melena, Hematochezia, Other Genitourinary: No Dysuria, No Frequency, No Incontinence, No Hematuria, No Retention, No Other Musculoskeletal: No: other, neck pain, shoulder pain, arm pain, back pain, hand pain, leg pain, foot pain Skin: No: Rash, Lesions, Jaundice, Bruising, Other Neurological: No: Weakness, Numbness, Incoordination, Change in speech, Confusion, Seizures, Other Allergies: Coded Allergies: Gabapentin (Verified Allergy, Severe, 01/31/25) Ceftriaxone (Verified Allergy, Unknown, rash, 01/31/25) Uncoded Allergies: CONTRAST (Allergy, Unknown, 01/31/25) SEAFORD LIQUID MULTIVITE (Allergy, Unknown, 01/31/25) Exam Vital Signs Vital Signs Date Time Temp Pulse Resp B/P (MAP) Pulse Ox O2 Delivery O2 Flow Rate FiO2 05/12/25 06:21 88 16 154/85 05/12/25 05:45 99.1 98 99.1 05/12/25 05:45 Room Air* 0 21 General Appearance: Alert, Oriented X3, Cooperative, No acute distress HEENT: Atraumatic, PERRLA, EOMI, Mucous membr. moist/pink Respiratory: Clear to auscultation, Normal air movement Cardiovascular: Regular rate, Normal S1, Normal S2, No murmurs Abdominal: Normal bowel sounds, Soft, No hepatospenomegaly, No masses, Other (gurading and rebound tenderness) Extremities: No clubbing, No cyanosis, No edema, Normal pulses, No tenderness/swelling Skin: No rashes, No breakdown, No significant lesion Neuro: Normal gait, Normal speech, Strength at 5/5 X4 ext, Normal tone, Sensation intact, Cranial nerves 3-12 NL Psych/Mental Status: Mental status NL, Mood NL Labs/Xrays CT scan abdomen and pelvis shows acute mesenteric adenitis Ultrasound unremarkable I reviewed labs, imaging CT scan abdomen pelvis, EKG and all diagnostic studies on this patient from ED records and the medical chart Labs Test 05/12/25 04:38 05/12/25 03:48 Range/Units Urine Color Dark yellow Yellow Urine Clarity Turbid H Clear Urine pH 6.0 5.0-9.0 Urine Specific [place] 1.039 H 1.001-1.035 Urine Protein 1+ H Negative Urine Ketones Negative Negative Urine Blood 3+ H Negative /uL Urine Nitrite Negative Negative Urine Bilirubin Negative Negative Urine Urobilinogen Normal Negative mg/dL Urine Leukocyte Esterase 1+ Negative /uL Urine RBC 3742 0 - 4 /hpf Urine Microscopic WBC 18 H 0-5 /HPF Urine Squamous Epithelial Cells None seen <5 /hpf Urine Bacteria None seen None Seen /hpf Urine Mucus Few None Seen Urine Glucose Normal Normal mg/dL White Blood Count 10.1 # 4.4-10.8 10^3/uL Red Blood Count 3.88 L 4.0-5.20 10^6/uL Hemoglobin 10.2 L 12.2-16.2 g/dL Hematocrit 30.6 L 36.0-46.0 % Mean Corpuscular Volume 78.9 L 80.0-100.0 fL Mean Corpuscular Hemoglobin 26.3 L 28.0-32.0 pg Mean Corpuscular Hemoglobin Concent 33.4 32.0-36.0 g/dL Red Cell Distribution Width 15.4 H 11.8-14.3 % Platelet Count 369 140-450 10^3/uL Mean Platelet Volume 7.7 6.9-10.8 fL Neutrophils (%) (Auto) 66.9 37.0-80.0 % Lymphocytes (%) (Auto) 23.9 10.0-50.0 % Monocytes (%) (Auto) 6.7 0.0-12.0 % Eosinophils (%) (Auto) 1.9 0.0-7.0 % Basophils (%) (Auto) 0.6 0.0-2.0 % Neutrophils # (Auto) 6.8 1.6-8.6 10 ^3/uL Lymphocytes # (Auto) 2.4 0.4-5.4 10 ^3/uL Monocytes # (Auto) 0.7 0-1.3 10 ^3/uL Eosinophils # (Auto) 0.2 0-0.8 10 ^3/uL Basophils # (Auto) 0.1 0-0.2 10 ^3/uL Nucleated Red Blood Cells 0.0 % Prothrombin Time 11.8 9.3-11.8 sec Prothrombin Time INR 1.13 0.9-1.15 Activated Partial Thromboplast Time 29.0 24.5-34.5 SEC Sodium Level 138 136-145 mmol/L Potassium Level 3.6 3.5-5.1 mmol/L Chloride Level 106 98-107 mmol/L Carbon Dioxide Level 23 20-31 mmol/L Anion Gap 9 5-15 Blood Urea Nitrogen 10 9-23 mg/dL Creatinine 0.81 0.550-1.02 mg/dL Glomerular Filtration Rate Calc 100 >90 mL/min BUN/Creatinine Ratio 12.3 10.0-20.0 Serum Glucose 98 74-106 mg/dL Calcium Level 9.5 8.7-10.4 mg/dL Beta HCG, Quantitative 0.5 L 1.5-4.2 mIU/mL Assessment/Plan Assessment/Plan acute DUB with clots s/p procedure bleeding since 05/09/2025 pt states had hysterescopy and dilation curtagge on 05/03/25 seen at fertility clinic current hemoglobin stable ct scan abd pelvis no acute pelvic findings ordered pelvic us fu results ordered production line technician consult fu results monitor hemoglobin ordered ua fu results ordered ppx ceftriaxone for now acute mesenteric adenitis found on ct scan ordered morphine as needed for pain ordered ceftriaxone and flagyl for now chronic problems uti pcos right ovarian torsion s/p exp lap fen/ppx diet hl scd no dvt ppx since acute bleeding no gi ppx since no hx of gerds or gi bleed plan admit to medicine Plan discussed with: Patient Date of Service: May 12, 2025 Billing Provider: CHRISTINE BECERRIL DNP Common Visit Codes: [id number] INP/OBS CARE (HIGH) CHRISTINE BECERRIL DNP May 12, 2025 07:29
[2025-05-12] MEDS: KETOROLAC TROMETH 60MG/2ML VIAL IM ONE (08:04)
--- NOTE | 2025-05-12 08:05 | DVH ---
Procedure: US PELVIC 05/12/2025 07:07 AM Indication: R pelvic pain, vag bleed h/o ov torsion Comparison: None Technique: Real-time grayscale and color images were obtained transabdominally and transvaginally.. FINDINGS: UTERUS: Anteverted, measuring 8.9 cm in length. Homogeneous myometrium without a discrete lesion. ENDOMETRIAL STRIPE: 1.3 cm in thickness. Homogenous echotexture. No fluid in the endometrial canal. CERVIX: Few subcentimeter simple Nabothian cysts are seen. RIGH OVARY: 4.6 X 4.2 X 3.8 cm in length. 39 mL in volume. Preserved vascular flow. No suspicious l esions identified. LEFT OVARY: Not visualized. CUL-DE-SAC: No significant fluid noted. OTHER: None. IMPRESSION: 1. No sonographic evidence for an acute intrapelvic process. 2. Left ovary is not visualized
[2025-05-12] MEDS: SODIUM CHLORIDE 0.9% 1,000 ML IV SCH (09:15)
[2025-05-12] MEDS ORDERED: HYDROmorphone HCL 2 MG/ML VL/or syr IV ONE (09:15)
[2025-05-12] MEDS ORDERED: NITROGLYCERIN 0.4 MG SL TAB SL PRN (09:15)
[2025-05-12] MEDS ORDERED: DOCUSATE SOD 100 MG CAP PO PRN (09:15)
[2025-05-12] MEDS: PIPERACILLIN-TAZOB 3.375GM 100 ML IV ONE (09:57)
[2025-05-12 10:12] VITALS: BP 125/60; PULSE 75; RESP 14; TEMP 97.8; O2SAT 99
[2025-05-12 10:19] VITALS: RESP 18; O2SAT 97
[2025-05-12] MEDS: HYDROmorphone HCL 2 MG/ML VL/or syr IV PRN (10:21)
[2025-05-12] MEDS ORDERED: ERGO1CAP12 PO ×2 (10:45)
[2025-05-12] MEDS ORDERED: TIRZ5INJ2 ×2 (10:48)
[2025-05-12] MEDS: PIPERACILLIN-TAZOB 3.375GM 100 ML IV SCH (12:07)
[2025-05-12 12:42] LABS: Hematocrit 27.4 % (36.0-46.0); Hemoglobin 9.1 g/dL (12.2-16.2)
[2025-05-12 12:44] VITALS: BP 102/47; PULSE 67; RESP 18; TEMP 98; O2SAT 99
[2025-05-12] MEDS: ONDANSETRON HCL 4 MG/2 ML VIAL IV PRN (18:02)
[2025-05-12 18:13] LABS: Hematocrit 28.8 % (36.0-46.0); Hemoglobin 9.4 g/dL (12.2-16.2)
[2025-05-12 18:22] VITALS: BP 123/72; PULSE 76; RESP 16; TEMP 98; O2SAT 97
[2025-05-12 21:00] VITALS: BP 118/72; PULSE 87; RESP 18; TEMP 98.3; O2SAT 98
[2025-05-12 23:30] VITALS: BP_SYST 146; BP_SYST 148; BP_DIAS 74; BP_DIAS 77; PULSE 75; PULSE 89; RESP 18; TEMP 98; TEMP 98.1; O2SAT 97; O2SAT 98
[2025-05-13] VITALS (8 sets, daily range): BP systolic 124–148; BP diastolic 74–88; PULSE 74–87; RESP 15–19; TEMP 97.8–98.6; O2SAT 96–99
[2025-05-13 00:36] LABS: Hematocrit 27.5 % (36.0-46.0); Hemoglobin 9.1 g/dL (12.2-16.2)
[2025-05-13 06:27] LABS: Basophils # (auto) 0 10 ^3/uL (0-0.2); Eosinophils # (auto) 0.1 10 ^3/uL (0-0.8); Hemoglobin 9.2 g/dL (12.2-16.2); Monocytes # (auto) 0.5 10 ^3/uL (0-1.3)
[2025-05-13 06:29] LABS: Basophils % (auto) 0.7 % (0.0-2.0); Eosinophils % (auto) 2.5 % (0.0-7.0); Hematocrit 27.4 % (36.0-46.0); Lymphocytes % (auto) 33.6 % (10.0-50.0); Mean Corpuscular Hemoglobin 26.5 pg (28.0-32.0); Mean Corpuscular Hgb Conc. 33.6 g/dL (32.0-36.0); Monocytes % (auto) 8.2 % (0.0-12.0); Neutrophils # (auto) 3.2 10 ^3/uL (1.6-8.6); Nucleated Red Blood Cells % 0.1 %; Platelet Count (auto) 286 10^3/uL (140-450); Red Blood Cells 3.47 10^6/uL (4.0-5.20); Red Cell Distribution Width 15.2 % (11.8-14.3); White Blood Cell 5.9 10^3/uL (4.4-10.8)
[2025-05-13 06:56] LABS: Alanine Aminotransferase 34 U/L (7-40); Albumin 4.1 g/dL (3.2-4.8); Alkaline Phosphatase 65 U/L (46-116); Anion Gap 10 (5-15); Aspartate Aminotransferase 21 U/L (<34); BUN/Creatinine Ratio 13.3 (10.0-20.0); Bilirubin, Total 0.6 mg/dL (0.2-1.0); Calcium 8.9 mg/dL (8.7-10.4); Carbon Dioxide 22 mmol/L (20-31); Chloride 106 mmol/L (98-107); Glucose 81 mg/dL (74-106); Sodium 138 mmol/L (136-145); Total Protein 6.7 g/dL (5.7-8.2)
[2025-05-13 07:13] LABS: Blood Urea Nitrogen 8 mg/dL (9-23); Potassium 3.3 mmol/L (3.5-5.1)
--- NOTE | 2025-05-13 07:18 | DVHINCON2 ---
Date of service: May 13, 2025 Referring Physician HOSPITALIST Reason for Consultation ABD PAIN History of Present Illness PT IS ADMITTED FOR ACUTE ABD PAIN ASOCIATED WITH N,VOMITING .PT HAD D AND C,HYSTEROSCOPY IN [facility] . PT HAS MENORRHAGIA ,NO PREG SO FAR AND STATES SHE HAS BLEEDING FOR 15-20 DAYS PER MONTH,NO DYSMENORRHEA OR DYSPAURINA.PELVIC US IS NORMAL Past Medical History PCOS Past Surgical History D AND C,,HYSTEROSCOPY Family History NA Social History NA Patient Family History: FH: breast cancer G8 MOTHER Allergies: Coded Allergies: Gabapentin (Verified Allergy, Severe, 01/31/25) Ceftriaxone (Verified Allergy, Unknown, rash, 01/31/25) Uncoded Allergies: CONTRAST (Allergy, Unknown, 01/31/25) SEAFORD LIQUID MULTIVITE (Allergy, Unknown, 01/31/25) Home Meds Active Scripts Prednisone (Prednisone) 20 Mg Tab, 20 MG PO BID for 5 Days, #10 MG Prov:LUCIO ALDANA MD 04/28/25 Levofloxacin Hemihydrate (LEVOFLOXACIN) 750 Mg Tab, 1 TAB PO DAILY, #7 TAB Prov:EDGAR MESSER 03/22/25 Reported Medications Tirzepatide (Zepbound) 5 Mg/0.5 Ml Inj 05/12/25 Ergocalciferol (Vitamin D) 50,000 Unit Cap, 1 CAP PO QWEEKLY 05/12/25 Current Medications Current Medications Medications (Trade) Dose Ordered Sig/Rachael Route PRN Reason Start Time Stop Time Status Last Admin Sodium Chloride 1,000 ml @ 120 mls/hr Q8H20M IV 05/12/25 09:15 05/12/25 12:55 Ondansetron HCl (Zofran) 4 mg Q4HP PRN IV NAUSEA / VOMITING 05/12/25 09:15 05/12/25 18:02 Docusate Sodium (Colace Capsule) 100 mg BIDPRN PRN PO FOR CONSTIPATION 05/12/25 09:15 Nitroglycerin (Ntrostat Sublingual) 0.4 mg Q5MINP PRN SL FOR CHEST PAIN 05/12/25 09:15 Hydromorphone HCl (Dilaudid Injection) 0.5 mg Q4HPRN PRN IV MODERATE PAIN (4-6 PAIN SCALE) 05/12/25 09:15 05/13/25 05:52 Piperacillin Sod/ Tazobactam Sod 100 ml @ 25 mls/hr Q6HR IV 05/12/25 12:00 05/13/25 05:50 Review of Systems Constitutional: no fever, chill, weight loss HEENT: no eye pain, no hearing loss, no oral lesion, no scleral icterus Heart: no chest pain, no chest pressure Lung: no cough, no dyspnea with exertion Abdomen: see HPI : no pain with urination, normal appearing urine Musculoskeletal: no joint pain, no muscle pain Neurological: no seizure, no loss of sensation, no weakness in extremities Pysch: no depression, no anxiety Derm: no rash, no jaundice Vital Signs Vital Signs Date Time Temp Pulse Resp B/P (MAP) Pulse Ox O2 Delivery O2 Flow Rate FiO2 05/13/25 06:22 80 18 132/64 05/13/25 05:00 97.8 98 97.8 05/12/25 10:19 Room Air* 0 21 Physical Exam HEENT:NL NECK: NL CARDIAC: RRR PULMONARY: CTA ABDOMEN: OBESE,NO RIGIDITY OR REBOUND PELVIC- NO BLEEDING NOTED,SIZE OF NUTERUS 8-9 WKS SIZE Labs/Diagnostic Data Labs Test 05/13/25 05:41 05/12/25 04:38 05/12/25 03:48 Range/Units White Blood Count 5.9 # 4.4-10.8 10^3/uL Red Blood Count 3.47 L 4.0-5.20 10^6/uL Hemoglobin 9.2 L 12.2-16.2 g/dL Hematocrit 27.4 L 36.0-46.0 % Mean Corpuscular Volume 79.0 L 80.0-100.0 fL Mean Corpuscular Hemoglobin 26.5 L 28.0-32.0 pg Mean Corpuscular Hemoglobin Concent 33.6 32.0-36.0 g/dL Red Cell Distribution Width 15.2 H 11.8-14.3 % Platelet Count 286 140-450 10^3/uL Mean Platelet Volume 7.6 6.9-10.8 fL Neutrophils (%) (Auto) 55.0 37.0-80.0 % Lymphocytes (%) (Auto) 33.6 10.0-50.0 % Monocytes (%) (Auto) 8.2 0.0-12.0 % Eosinophils (%) (Auto) 2.5 0.0-7.0 % Basophils (%) (Auto) 0.7 0.0-2.0 % Neutrophils # (Auto) 3.2 1.6-8.6 10 ^3/uL Lymphocytes # (Auto) 2.0 0.4-5.4 10 ^3/uL Monocytes # (Auto) 0.5 0-1.3 10 ^3/uL Eosinophils # (Auto) 0.1 0-0.8 10 ^3/uL Basophils # (Auto) 0 0-0.2 10 ^3/uL Nucleated Red Blood Cells 0.1 % Urine Color Dark yellow Yellow Urine Clarity Turbid H Clear Urine pH 6.0 5.0-9.0 Urine Specific [place] 1.039 H 1.001-1.035 Urine Protein 1+ H Negative Urine Ketones Negative Negative Urine Blood 3+ H Negative /uL Urine Nitrite Negative Negative Urine Bilirubin Negative Negative Urine Urobilinogen Normal Negative mg/dL Urine Leukocyte Esterase 1+ Negative /uL Urine RBC 3742 0 - 4 /hpf Urine Microscopic WBC 18 H 0-5 /HPF Urine Squamous Epithelial Cells None seen <5 /hpf Urine Bacteria None seen None Seen /hpf Urine Mucus Few None Seen Urine Glucose Normal Normal mg/dL Prothrombin Time 11.8 9.3-11.8 sec Prothrombin Time INR 1.13 0.9-1.15 Activated Partial Thromboplast Time 29.0 24.5-34.5 SEC Beta HCG, Quantitative 0.5 L 1.5-4.2 mIU/mL Primary Diagnosis ACUTE ABD PAIN -MESENTERIC ADENITIS 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
[2025-05-13 11:54] LABS: Hematocrit 27.5 % (36.0-46.0); Hemoglobin 9.3 g/dL (12.2-16.2)
[2025-05-13] MEDS: ACETAMINOPHEN 325 MG TAB PO PRN (13:26)
--- NOTE | 2025-05-13 15:08 | DVHPN2 ---
Subjective I am assuming the care of the patient from today onwards. Patient is he is here for vaginal bleeding. Patient's recent path shows some bleeding with a blood clot. Changes from previous H/P or p: No Changes Eyes: No Pain, No Vision change, No Conjunctivae inflammation, No Eyelid inflammation, No Other, No Redness ENT: No Ear pain, No Ear discharge, No Nose pain, No Nose discharge, No Nose congestion, No Mouth pain, No Mouth swelling, No Throat pain, No Throat swelling, No Other Cardiovascular: No Chest Pain, No Palpitations, No Orthopnea, No Paroxysmal Noc. Dyspnea, No Edema, No Lt Headedness, No Other Respiratory: No Cough, No Dry, No Shortness of breath, No SOB with excertion, No Wheezing, No Hemoptysis, No Pleuritic Pain, No Sputum, No Other Gastrointestinal: Nausea, Vomiting, Abdominal Pain; No Diarrhea, No Constipation, No Melena, No Hematochezia, No Other Genitourinary: No Dysuria, No Frequency, No Incontinence, No Hematuria, No Retention, No Other Musculoskeletal: No other, No neck pain, No shoulder pain, No arm pain, No back pain, No hand pain, No leg pain, No foot pain Skin: No Rash, No Lesions, No Jaundice, No Bruising, No Other Objective Vitals Vital Signs Date Time Temp Pulse Resp B/P (MAP) Pulse Ox O2 Delivery O2 Flow Rate FiO2 05/13/25 13:00 98.4 86 17 147/83 (104) 96 98.4 05/12/25 10:19 Room Air* 0 21 Intake/Output Intake and Output 05/13/25 07:00 Intake Total 1420 ml Balance 1420 ml Intake Oral 0 ml IV Total 1420 ml # Voids 4 Exam HEENT pupils are reactive Neck is supple CV is S1-S2 regular rate and rhythm Respiratory diminished breath sounds bases GI positive bowel sound Extremity no edema [employer] no motor deficit Medications Current Medications Medications Dose Ordered Sig/Rachael Route Start Time Stop Time Status Last Admin Dose Admin Ondansetron HCl 4 mg Q4HP PRN IV 05/12/25 09:15 05/13/25 13:26 4 MG Docusate Sodium 100 mg BIDPRN PRN PO 05/12/25 09:15 Nitroglycerin 0.4 mg Q5MINP PRN SL 05/12/25 09:15 Hydromorphone HCl 0.5 mg Q4HPRN PRN IV 05/12/25 09:15 05/13/25 05:52 0.5 MG Piperacillin Sod/ Tazobactam Sod 100 ml @ 25 mls/hr Q6HR IV 05/12/25 12:00 05/13/25 13:10 25 MLS/HR Acetaminophen 650 mg Q6HP PRN PO 05/13/25 13:15 05/13/25 13:26 650 MG Laboratory Results Laboratory Tests 05/13/25 05:41 05/13/25 11:42 Chemistry Test 05/13/25 05:41 Albumin 4.1 g/dL (3.2-4.8) Calcium Level 8.9 mg/dL (8.7-10.4) Total Protein 6.7 g/dL (5.7-8.2) LFT Test 05/13/25 05:41 Alanine Aminotransferase (ALT) 34 U/L (7-40) Alkaline Phosphatase 65 U/L (46-116) Aspartate Amino Transferase (AST) 21 U/L (<34) Total Bilirubin 0.6 mg/dL (0.2-1.0) Urinalysis Test 05/12/25 04:38 Urine Color Dark yellow (Yellow) Urine Clarity Turbid (Clear) H Urine pH 6.0 (5.0-9.0) Urine Specific [place] 1.039 (1.001-1.035) Urine Protein 1+ (Negative) H Urine Ketones Negative (Negative) Urine Blood 3+ /uL (Negative) H Urine Nitrite Negative (Negative) Urine Bilirubin Negative (Negative) Urine Urobilinogen Normal mg/dL (Negative) Urine Leukocyte Esterase 1+ /uL (Negative) Urine RBC 3742 /hpf (0 - 4) Urine Microscopic WBC 18 /HPF (0-5) H Urine Squamous Epithelial Cells None seen /hpf (<5) Urine Bacteria None seen /hpf (None Seen) Urine Mucus Few (None Seen) Urine Glucose Normal mg/dL (Normal) Assessment/Plan Assessment/Plan 69-year-old female with a known history of vaginal bleeding was being managed by fertility clinic in [place], status post hysteroscopy and D&C on May 03. For the last six days patient's has been having vaginal bleeding consuming 10 pads per day. Also complaining of right lower quadrant pain. 1. Abdominal pain unspecified 2. Mesenteric adenitis 3. Vaginal bleeding with a recent history of hysteroscopy and D&C -monitor H&H, pain meds as needed, discharge plan. Plan discussed with: Patient, Other My Orders Orders - EDIE TABOR MD Procedure Category Date Status Time Regular Diet DIET 05/13/25 Transmitted Lunch Date of Service: May 13, 2025 Billing Provider: EDIE TABOR MD Common Visit Codes: [id number] INP/OBS CARE(MOD) EDIE TABOR MD May 13, 2025 15:08
[2025-05-14 01:00] VITALS: BP 118/62; PULSE 80; RESP 18; TEMP 97.4; O2SAT 97
[2025-05-14 05:00] VITALS: BP 132/65; PULSE 93; RESP 18; TEMP 96.9; O2SAT 95
[2025-05-14 08:00] VITALS: PULSE 89; RESP 18; O2SAT 97
[2025-05-14 09:31] VITALS: BP 153/99; PULSE 89; RESP 18; TEMP 98.2; O2SAT 97
[2025-05-14 12:46] LABS: Hemoglobin 9.1 g/dL (12.2-16.2)
[2025-05-14] MEDS ORDERED: AUG875T PO ×2 (12:56)
[2025-05-14] MEDS: AMOXICILLIN/CLAVUL 875 MG TAB PO ONE (13:00)
--- NOTE | 2025-05-14 13:12 | DVHDS2 ---
Discharge Summary Date of Admission May 12, 2025 at 09:11 Date of Discharge: May 14, 2025 Labs/Diagnostic Data: Laboratory Results Test 05/14/25 12:22 05/13/25 05:41 05/12/25 04:38 05/12/25 03:48 Hemoglobin 9.1 g/dL (12.2-16.2) Hematocrit 27.0 % (36.0-46.0) White Blood Count 5.9 10^3/uL (4.4-10.8) Red Blood Count 3.47 10^6/uL (4.0-5.20) Mean Corpuscular Volume 79.0 fL (80.0-100.0) Mean Corpuscular Hemoglobin 26.5 pg (28.0-32.0) Mean Corpuscular Hemoglobin Concent 33.6 g/dL (32.0-36.0) Red Cell Distribution Width 15.2 % (11.8-14.3) Platelet Count 286 10^3/uL (140-450) Mean Platelet Volume 7.6 fL (6.9-10.8) Neutrophils (%) (Auto) 55.0 % (37.0-80.0) Lymphocytes (%) (Auto) 33.6 % (10.0-50.0) Monocytes (%) (Auto) 8.2 % (0.0-12.0) Eosinophils (%) (Auto) 2.5 % (0.0-7.0) Basophils (%) (Auto) 0.7 % (0.0-2.0) Neutrophils # (Auto) 3.2 10 ^3/uL (1.6-8.6) Lymphocytes # (Auto) 2.0 10 ^3/uL (0.4-5.4) Monocytes # (Auto) 0.5 10 ^3/uL (0-1.3) Eosinophils # (Auto) 0.1 10 ^3/uL (0-0.8) Basophils # (Auto) 0 10 ^3/uL (0-0.2) Nucleated Red Blood Cells 0.1 % Sodium Level 138 mmol/L (136-145) Potassium Level 3.3 mmol/L (3.5-5.1) Chloride Level 106 mmol/L (98-107) Carbon Dioxide Level 22 mmol/L (20-31) Anion Gap 10 (5-15) Blood Urea Nitrogen 8 mg/dL (9-23) Creatinine 0.60 mg/dL (0.550-1.02) Glomerular Filtration Rate Calc 124 mL/min (>90) BUN/Creatinine Ratio 13.3 (10.0-20.0) Serum Glucose 81 mg/dL (74-106) Calcium Level 8.9 mg/dL (8.7-10.4) Total Bilirubin 0.6 mg/dL (0.2-1.0) Aspartate Amino Transferase (AST) 21 U/L (<34) Alanine Aminotransferase (ALT) 34 U/L (7-40) Alkaline Phosphatase 65 U/L (46-116) Total Protein 6.7 g/dL (5.7-8.2) Albumin 4.1 g/dL (3.2-4.8) Urine Color Dark yellow (Yellow) Urine Clarity Turbid (Clear) Urine pH 6.0 (5.0-9.0) Urine Specific [place] 1.039 (1.001-1.035) Urine Protein 1+ (Negative) Urine Ketones Negative (Negative) Urine Blood 3+ /uL (Negative) Urine Nitrite Negative (Negative) Urine Bilirubin Negative (Negative) Urine Urobilinogen Normal mg/dL (Negative) Urine Leukocyte Esterase 1+ /uL (Negative) Urine RBC 3742 /hpf (0 - 4) Urine Microscopic WBC 18 /HPF (0-5) Urine Squamous Epithelial Cells None seen /hpf (<5) Urine Bacteria None seen /hpf (None Seen) Urine Mucus Few (None Seen) Urine Glucose Normal mg/dL (Normal) Prothrombin Time 11.8 sec (9.3-11.8) Prothrombin Time INR 1.13 (0.9-1.15) Activated Partial Thromboplast Time 29.0 SEC (24.5-34.5) Beta HCG, Quantitative 0.5 mIU/mL (1.5-4.2) Other Laboratory Tests 05/14/25 12:22 05/13/25 05:41 Brief Hx & Hospital Course: 29year-old female with a known history of vaginal bleeding was being managed by fertility clinic in [place], status post hysteroscopy and D&C on May 03. For the last six days patient's has been having vaginal bleeding , using 10 pads per day. Also complaining of right lower quadrant pain. Patient was found to have vaginal bleeding with a recent history of hysteroscopy and D&C. Patient's bleeding has been stopped and currently being treated for UTI. Patient is being discharged under stable condition with close follow up as an outpatient with the PCP as well as fertility clinic any [place] [facility] department. Please return to ER if the abdominal pain gets worse or any other symptoms or vaginal bleeding. Patient was noted to have some mesenteric adenitis wishes unspecified outpatient follow up with the PCP with a repeat CT abdomen and pelvis if indicated as an outpatient. Condition at Discharge: Stable Final Diagnosis/Problems List 69-year-old female with a known history of vaginal bleeding was being managed by fertility clinic in [place], status post hysteroscopy and D&C on May 03. For the last six days patient's has been having vaginal bleeding consuming 10 pads per day. Also complaining of right lower quadrant pain. 1. Abdominal pain unspecified 2. Mesenteric adenitis 3. Vaginal bleeding with a recent history of hysteroscopy and D&C -monitor H&H, pain meds as needed, discharge plan. Discharge Disposition: Home SNF Discharge Will this Physician continue t: No Discharge Instruct/Medications Diet: Cardiac 2g Na,low cholest Activity: No Restrictions, As Tolerated Follow Up/Referral: Follow up with the PCP in 1-2 weeks Follow up with the Gynecology fertility [facility] in [place] as scheduled. Medications: As prescribed and reconciled Discharge Statement: "Patient was advised to return to the ER or call 911 if any headaches, dizziness, shortness of breath, chest pain, abdominal pain, bleeding, fevers, or worsening of medical condition. Patient was counseled about treatment plan, medications, possible side effects, patientverbalized understanding. All questions were answered to the best of my ability. This discharge took greater then 30 minutes in planning, reviewing documentation, counseling the patient, and discussing with other team members." ASSESSMENT ASSESSMENT Assessment 69-year-old female with a known history of vaginal bleeding was being managed by fertility clinic in [place], status post hysteroscopy and D&C on May 03. For the last six days patient's has been having vaginal bleeding consuming 10 pads per day. Also complaining of right lower quadrant pain. 1. Abdominal pain unspecified 2. Mesenteric adenitis 3. Vaginal bleeding with a recent history of hysteroscopy and D&C -monitor H&H, pain meds as needed, discharge plan. Date of Service: May 14, 2025 Billing Provider: EDIE TABOR MD Common Visit Codes: [id number] DISCH DAY >30min EDIE TABOR MD May 14, 2025 13:12
[2025-05-14 13:18] VITALS: BP 124/63; PULSE 81; RESP 20; TEMP 97.5; O2SAT 98
[2025-05-14 14:28] VITALS: BP 130/76; PULSE 68; RESP 20; TEMP 98.7; O2SAT 98
== END 2025-05-14 15:00 | disposition home or self-care (01) | DRG 254 ==
LOC: ER 02:48 → OVERFLOW 09:11 → EAST 23:26
PROVIDERS: ADMIT Internal Medicine; ATTEND Internal Medicine
DX: I88.0 Nonspecific mesenteric lymphadenitis (principal); E28.2 Polycystic ovarian syndrome; N93.8 Other specified abnormal uterine and vaginal bleeding; N39.0 Urinary tract infection, site not specified; N92.0 Excessive and frequent menstruation with regular cycle; Z88.8 Allergy status to other drugs, medicaments and biological substances; Z79.899 Other long term (current) drug therapy; Z88.1 Allergy status to other antibiotic agents; Z91.041 Radiographic dye allergy status; Z80.3 Family history of malignant neoplasm of breast
CPT/HCPCS: 36415; 74176; 76830; 76856; 80048; 80053; 81001; 84702; 85014; 85018; 85025; 85610; 85730; 96365; 96375; G0378; J1885; J1956; J2405; J2543